=== PATIENT | female | born 1950 | race Caucasian/White ===

== ENCOUNTER 2020-02-02 19:14 | Emergency (ER) | payer MEDICARE, OTHER, SELFPAY ==
[2020-02-02 19:28] VITALS: BP 156/87; PULSE 79; RESP 16; TEMP 36.6; O2SAT 97; BMI 28.3
--- NOTE | 2020-02-02 19:45 | ED_ITS ---
HPI - Abdominal Pain General: Chief Complaint: Abdominal Pain Stated Complaint: poss uti Time Seen by Provider: 02/02/20 19:38 History of Present Illness: HPI narrative: Nadya is a nice 69-year-old female who comes in complaining of UTI. She states that she has had urinary frequency, urgency and dysuria that started today. She states that his symptoms are exactly like when she has had UTIs in the past. She says the pain came on fairly quickly and caused her nauseousness and made her vomit once but currently feels better from that. She complains of midline discomfort with the need to urinate which is better after. She is had no fevers or chills. She denies any vaginal discharge or bleeding. She has no diarrhea, constipation or other complaints. She is unaware of anything that makes her symptoms better or worse. Associated Symptoms: Reports dysuria, nausea and vomiting; Denies chills, coffee ground emesis, constipation, GI cramping, diarrhea, fever(s), hematochezia, hematuria, hematemesis, melena and syncope Review of Systems General: Reports: other (negative unless marked) Const: Denies: fever, chills, body aches, fatigue, malaise or diaphoresis Eyes: Denies: change in vision or blurry vision ENMT: Denies: throat pain, painful swallowing, hoarseness, ear pain, ear discharge, Change in hearing or nasal discharge Card: Denies: chest pain, palpitations, irregular heart rhythm, syncope, pre- syncope, shortness of breath on exertion or shortness of breath when lying down Resp: Denies: shortness of breath, productive cough, non-productive cough, wheezing, coughing up blood or chest congestion GI: Reports: nausea and vomiting; Denies: abdominal pain, vomiting blood, coffee grounds in vomit, diarrhea, constipation, cramping, blood in stool or black tarry stool : Reports: painful urination, urinary frequency and urinary urgency; Denies: flank pain, decreased urine ouput, urinary incontinence or blood in urine Musc: Denies: neck pain, back pain, extremity pain, extremity swelling, joint pain, joint swelling, joint warmth or joint stiffness Skin/Breast: Denies: rash, skin tenderness or yellow skin Neuro: Denies: headache, numbness in extremities, weakness in extremities, changes in sensation, lack of coordination, difficulty walking, dizziness, vertigo or confusion Endo: Denies: excessive thirst, tired all the time, cold intolerance, excessive sweating, flushing or hot flashes Catracho/Lymph: Denies: easy bruising, easy bleeding, petechiae or enlarged lymph nodes All/Imm: Denies: hives, throat swelling, tongue swelling, facial swelling or acute wheezing PFSH ED PFSH: Social History Smoking and tobacco status: never smoked Physical Exam Const: COMMON NORMALS: no apparent distress, oriented x3, no limitations, healthy appearing and well nourished EXAM LIMITATIONS: no altered mental stat us GENERAL APPEARANCE: cooperative, well kempt and well developed ORIENTATION/CONSCIOUSNESS: Yes awake HENMT: COMMON NORMALS: normocephalic, head/scalp atraumatic, hearing grossly normal bilaterally, external ears normal, EAC's normal, external nose normal and moist oral mucous membranes HEAD & SCALP: normal to inspection, normocephalic and atraumatic FACE & SINUS: normal facial exam and face symmetric NOSE: external nose normal and nares normal EXTERNAL EAR: Yes external ears normal EXTERNAL AUDITORY CANAL: EAC's normal MOUTH: oral and palatal mucosa normal and tongue normal Eye: COMMON NORMALS: PERRL, EOMs intact bilaterally, conjunctivae normal and no scleral icterus GENERAL EYE: normal appearance of both eyes and normal light reflex CONJUNCTIVA: Yes conjunctivae normal SCLERA: sclerae normal CORNEA: Yes corneas normal PUPIL: Yes PERRL DIRECT OPHTHALMOSCOPY: Yes normal light reflex Neck/C-Spine: COMMON NORMALS: full ROM, no lymphadenopathy, supple, no meningeal signs and no JVD GENERAL: Yes normal visual inspection and Yes trachea midline CERVICAL SPINE: Yes cervical ROM normal Chest: COMMONS NORMALS: inspection of chest normal and palpation of chest normal Resp: COMMON NORMALS: normal respiratory effort, no retractions, no use of accessory muscles and clear to auscultation bilaterally EFFORT & INSPECTION: Yes able to speak in complete sentences AUSCULTATION: clear to auscultation bilaterally Cardio: COMMON NORMALS: no JVD, regular rate, regular rhythm, S1 normal heart sound, S2 normal heart sound, no gallops, no clicks, no murmurs and no rub JUGULAR VENOUS DISTENTION: no JVD RATE: regular rate RHYTHM: regular rhythm HEART SOUNDS: S1 normal and S2 normal GI: COMMON NORMALS: soft to palpation, non-tender, no hepatosplenomegaly and no masses INSPECTION: Yes normal to inspection PALPATION: Yes soft and Yes no hepatosplenomegaly : COMMON NORMALS: Yes no CVA tenderness BLADDER/KIDNEY EXAM: Yes no CVA tenderness Back/Pelvis: COMMON NORMALS: no CVA tenderness, thoracic and lumbar spine normal to inspection, no thoracic nor lumbar tenderness and thoraco-lumbar ROM normal Extremity: COMMON NORMALS: normal to inspection, full ROM, normal capillary refill, no joint enlargement, no clubbing, cyanosis or edema and no calf tenderness Neuro: COMMON NORMALS: oriented x3, CN's II-XII intact bilaterally, moves all extremities, no focal motor deficits and no sensory deficits noted MENINGEAL SIGNS: Yes no meningeal signs Psych: COMMON NORMALS: mental status grossly normal, thought process normal, cooperative, affect normal, speech normal and activity/motor behavior normal APPEARANCE: Yes well kempt SPEECH: Yes normal speech THOUGHT PROCESS: normal thought process Skin: COMMON NORMALS: no rashes or lesions noted, skin turgor normal, no jaundice, no petechiae and no mottling GENERAL SKIN EXAM: no rashes or lesions noted and turgor normal Course Vital Signs: Vital signs: Vital Signs Temperature 97.8 F 02/02/20 19:28 Pulse Rate 70 02/02/20 21:53 Respiratory Rate 18 02/02/20 21:53 Blood Pressure 180/102 02/02/20 21:53 Pulse Oximetry 97 02/02/20 21:53 MDM - Abdominal Pain MDM Narrative: Medical decision making narrative: Ms. Diaz is a nice 69-year-old female who comes in with urinary frequency, urgency and dysuria. She denies any lower abdominal pain. She states this pain is exactly as when she is had UTIs in the past. She took an old prescription of Pyridium shortly before coming in causing the contamination of her urinalysis. She declined any IV, lab work or CAT scan to evaluate for pyelonephritis, appendicitis and otherwise. Patient states she is feeling better after the Pyridium given here and would like to be discharged home. She denies any questions or concerns but does agree to return should her symptoms change or worsen. Differential Diagnosis: Differential diagnosis abdominal pain: Likely abdominal pain, acute appendicitis, calculus of kidney, constipation, diverticulitis, endometriosis and gastroenteritis Lab Data: Attestation: I reviewed the patient's lab results. Labs: Lab Results 02/02/20 Range/Units 20:20 Urine Color [place] (Yellow) Urine Appearance Cloudy (CLEAR) Urine pH TNP Ur Specific Gravit y TNP Urine Protein Not tested (Negative) Urine Glucose (UA) Not tested (Normal) Urine Ketones Not tested H (Negative) Urine Blood Not tested A (Negative) Urine Nitrate Not tested A (Negative) Urine Bilirubin Not tested (NEGATIVE) Urine Urobilinogen Not tested A (Negative) mg/dL Ur Leukocyte Rosalee ase Not tested A (Negative) Urine RBC 5-10 H (0-2) /hpf Urine WBC 25-40 H (0-5) /hpf Ur Squamous Epith Cells 0-4 H (0-5) Urine Bacteria 3+ H (NONE) Discharge Plan Discharge Patient Disposition: Home, Self-Care Clinical Impression: Acute UTI Condition: Stable Prescriptions: New Cipro 500 mg tablet 500 mg PO BID Qty: 20 RF: 0 Pyridium 100 mg tablet 100 mg PO Q8H PRN (Reason: pain) Qty: 10 RF: 0 Zofran 4 mg tablet 4 mg PO Q6H PRN (Reason: nausea and vomiting) Qty: 20 RF: 0 No Action ofloxacin 0.3 % drops RF: 0 benazepril-hydrochlorothiazide 20-12.5 mg tablet RF: 0 Estring 2 mg (7.5 mcg /24 hour) ring VAGINAL RF: 0 quetiapine 25 mg tablet RF: 0 sertraline 100 mg tablet RF: 0 simvastatin 40 mg tablet RF: 0 Discharge Orders: Discharge Order (Routine); Ordered 02/02/20 Ordered By: Marva Ballard Referrals: Amira David [Primary Care Provider] - 1-3 days Rodolfo Ann DO [Family Provider] - Discharge Diet: Advance as tolerated Discharge Activity: Increase activity as tolerated Patient Instructions: Urinary Tract Infection in Women (ED) Activity Restrictions/Additional Instructions: Please return to the ER immediately for any of the signs or symptoms listed on your discharge instruction sheets, worsening/changing of your symptoms, you are not getting better as quickly as expected, or for ANY other cause or concerns. Discharge Date/Time: 02/02/20 21:54 Coding Level of Care Code ED Adhesive Primer for Rakesh Fwd Exam Comprehensive
[2020-02-02 20:51] VITALS: BP 132/82; PULSE 62; RESP 16; O2SAT 98
[2020-02-02 21:01] LABS: Urine Appearance Cloudy (CLEAR); Urine Color Orange (Yellow)
[2020-02-02 21:11] LABS: Add Urine Culture? Yes; Bacteria Urine 3+; Squamous Epithelial Cell Urine 0-4 (0-5); WBC Urine 25-40 /hpf (0-5)
[2020-02-02 21:13] LABS: Bilirubin Urine Not Tested (NEGATIVE); Blood Urine Not Tested (Negative); Glucose Urine UA Not Tested (Normal); Ketones Urine Not Tested (Negative); Leukocyte Esterase Urine Not Tested (Negative); Nitrate Urine Not Tested (Negative); Protein Urine Not Tested (Negative); Urobilinogen Urine Not Tested mg/dL (Negative)
[2020-02-02] MEDS: cefTRIAXone 1,000 mg SDV 1000 MG IM (21:31)
[2020-02-02] MEDS: ciprofloxacin 500 mg Tablet PO (21:32)
[2020-02-02] MEDS: phenazopyridine 100 mg Tablet 200 MG PO (21:33)
[2020-02-02] MEDS: lidocaine 1% INJ 20 mL 2.1 ML IV (21:48)
[2020-02-02 21:53] VITALS: BP 180/102; PULSE 70; RESP 18; O2SAT 97
== END 2020-02-02 21:54 | disposition home or self-care (01) ==
PROVIDERS: Emergency Provider Emergency Medicine; Family Provider Family Medicine; PCP Nurse Practitioner Family
DX: N39.0 Urinary tract infection, site not specified (principal)
CPT/HCPCS: 12345; 81001; 87077; 87086; 87186; 96372; 99281; 99283; J0696; J2001

== ENCOUNTER 2020-05-22 09:53 | Outpatient (CLI) | payer MEDICARE, OTHER, SELFPAY ==
--- NOTE | 2020-05-22 09:58 | MM_ITS ---
WS: [id number] BILATERAL SCREENING DIGITAL MAMMOGRAM WITH CAD HISTORY: SCREENING COMPARISON: 01/18/2019, 12/12/2017, 11/15/2016 and 10/28/2015 Bilateral CC and MLO views submitted. Computer aided detection analyzed. Breast composition: The breasts are extremely dense, which lowers the sensitivity of mammography. No suspicious masses, microcalcifications or architectural distortion. Area of architectural distortion in the central RIGHT breast has been stable over multiple prior examinations. There are also benign c alcifications and prior biopsy clip in the RIGHT breast. MM/[id number] IMPRESSION: BI-RADS: 2-Benign FOLLOW UP: 1 Year Follow-up
== END 2020-05-22 09:54 | disposition home or self-care (01) ==
LOC: RADSHAW 09:57
PROVIDERS: PCP Nurse Practitioner Family; Visit Provider Nurse Practitioner Family
DX: Z12.31 Encounter for screening mammogram for malignant neoplasm of breast (principal)
CPT/HCPCS: 77067

== ENCOUNTER 2021-06-11 14:50 | Outpatient (CLI) | payer MEDICARE, SELFPAY ==
--- NOTE | 2021-06-11 15:03 | MM_ITS ---
WS: [id number] BILATERAL SCREENING DIGITAL MAMMOGRAM WITH CAD HISTORY: SCREENING COMPARISON: 05/22/2020, 12/12/2017 Bilateral CC and MLO views submitted. Computer aided detection analyzed. Breast composition: The breasts are extremely dense, which lowers the sensitivity of mammography. No suspicious masses, microcalcifications or new architectural distortion. Stable appearance of the dens e fibroglandular densities and calcifications. The architectural distortion in the central RIGHT [address] is stable. MM/[id number] IMPRESSION: BI-RADS: 2-Benign FOLLOW UP: 1 Year Follow-up
== END 2021-06-11 14:51 | disposition home or self-care (01) ==
LOC: RADSHAW 15:03
PROVIDERS: PCP Nurse Practitioner Family; Visit Provider Nurse Practitioner Family
DX: Z12.31 Encounter for screening mammogram for malignant neoplasm of breast (principal)
CPT/HCPCS: 77067

== ENCOUNTER → 2021-10-24 16:03 | Outpatient (BNVA) | payer MEDICARE, SELFPAY | PROVIDERS: PCP Nurse Practitioner Family; Visit Provider Nurse Practitioner | DX: R39.9 Unspecified symptoms and signs involving the genitourinary system (principal); N39.0 Urinary tract infection, site not specified | CPT/HCPCS: 81000 ==

== ENCOUNTER 2021-11-18 17:20 | Emergency (ER) | payer MEDICARE, SELFPAY ==
[2021-11-18 18:12] VITALS: BP 161/84; PULSE 76; RESP 18; TEMP 36.7; O2SAT 97; BMI 26.8
[2021-11-18 19:08] LABS: Albumin Level 4.6 g/dL (3.5-5.2); Alkaline Phosphatase 50 IU/L (35-105); Blood Urea Nitrogen 15 mg/dL (8-23); Calcium 10.1 mg/dL (8.5-10.5); Carbon Dioxide 22 mmol/L (22-29); Chloride 98 mmol/L (98-107); Globulin 2.2 g/dL (1.3-4.6); Glucose 88 mg/dL (65-115); Lipase 47 U/L (13-60); Osmolality Calculated 280 mOsm/kg (285-295); Sodium 135 mmol/L (136-145); Total Bilirubin 0.5 mg/dL (0.15-1.2); Total Protein 6.8 g/dL (6.6-8.7)
[2021-11-18 19:18] LABS: Anion Gap 19.4 (5-19); Aspartate Amino Transferase 43 U/L (0-32); Potassium 4.4 mmol/L (3.5-5.1)
[2021-11-18 19:19] LABS: Alanine Aminotransferase 28 U/L (0-33)
[2021-11-18 19:24] LABS: Add Urine Microscopic? NO; Charge for UA Resulting for Rev
[2021-11-18] MEDS: sodium chloride 0.9% 1,000 ML 999 ML IV ×2 (19:25→20:45)
[2021-11-18 19:26] VITALS: BP 167/100; PULSE 75; RESP 17; O2SAT 99
[2021-11-18 19:28] LABS: Bilirubin Urine Neg (Negative); Blood Urine Neg (Negative); Glucose Urine UA Norm (Normal); Ketones Urine Negative (Negative); Leukocyte Esterase Urine Negative (Negative); Nitrate Urine Negative (Negative); Protein Urine Neg (Negative); Specific Gravity, Urine 1.015 (1.005-1.030); Sulfosalicylic Acid Urine Negative (Negative); Urine Appearance Clear (CLEAR); Urine Color Yellow (Yellow); Urobilinogen Urine Neg (Negative); pH Urine 8 (5-7)
[2021-11-18 19:29] LABS: Basophils % 0.4 %; Eosinophils % 0.3 %; Hematocrit 43.9 % (37.0-47.0); Hemoglobin 15.1 g/dL (11.5-15.3); Lymphocytes # 1.1 10^3/uL (0.8-4.8); Lymphocytes % 15.2 %; Mean Corpuscular HGB Conc 34.4 g/dL (30.0-36.0); Mean Corpuscular Hemoglobin 31.1 pg (28.0-34.0); Mean Corpuscular Volume 90.3 fl (81-99); Mean Platelet Volume 10.5 fL (7.4-10.4); Monocytes # 0.5 10^3/uL (0.2-0.9); Monocytes % 6.3 %; Neutrophils # 5.54 10^3/uL (1.8-7.7); Neutrophils % 77.2 %; Nucleated Red Blood Cells % 0 %; Platelet Count 168 10^3/cmm (130-400); Red Blood Count 4.86 10^6/uL (4.1-5.3); Red Cell Distribution Width 11.9 % (12.1-15.1); White Blood Count 7.2 10^3/uL (4.0-10.0)
--- NOTE | 2021-11-18 19:30 | W.ED.ABDPA2 ---
HPI - Abdominal Pain General: Chief Complaint: Abdominal Pain Stated Complaint: PCP SENT OVER FOR DEHYDRATION, NAUSEAUS Time Seen by Provider: 11/18/21 19:07 Source: patient Mode of arrival: ambulatory Limitations: no limitations History of Present Illness: 71-year-old female who states that she has been having abdominal cramping over the last 2 to 3 days with some nausea and decreased appetite. States the pain is mild nature rates it a 2-3 out of 10. States she believes she had Covid 2 weeks ago because her tested positive and she had headache body aches and still is feeling like she has a generalized malaise. States this abdominal cramping started 2 to 3 days ago she seen her PCP yesterday had normal blood work denies any dysuria denies any fever denies any cough or shortness of breath. Associated Symptoms: Denies dysuria Review of Systems Const: Reports: malaise Eyes: Denies: blurry vision or eye discomfort ENMT: Denies: throat pain or dental pain Card: Denies: chest pain Resp: Denies: dyspnea GI: Reports: abdominal pain : Denies: dysuria Musc: Denies: neck pain or back pain Skin/Breast: Denies: rash Neuro: Denies: headache(s) Psych: Denies: depression Catracho/Lymph: Denies: easy bruising All/Imm: Denies: urticaria PFSH ED PFSH: Social History Smoking and tobacco status: never smoked Physical Exam Const: COMMON NORMALS: no acute distress, patient oriented x3 and healthy appearing HENMT: COMMON NORMALS: normocephalic and atraumatic HEAD & SCALP: normocephalic and atraumatic Eye: COMMON NORMALS: Equal, round and reactive pupils present and EOMs intact bilaterally PUPIL: Yes Equal, round and reactive pupils present Neck/C-Spine: COMMON NORMALS: full ROM and supple Chest: COMMONS NORMALS: normal inspection of the chest and normal palpation of entire chest wall Resp: COMMON NORMALS: normal respiratory effort, No retractions, No use of accessory muscles and clear to auscultation bilaterally AUSCULTATION: clear to auscultation bilaterally Cardio: COMMON NORMALS: regular rate, regular rhythm and No murmurs present (Cardio) RATE: regular rate RHYTHM: regular rhythm GI: COMMON NORMALS: Normal to inspection, nondistended, normoactive bowel sounds present, Soft to palpation, non-tender and no masses PALPATION: Yes Soft to palpation Extremity: COMMON NORMALS: normal to inspection and full ROM Neuro: COMMON NORMALS: patient oriented x3, moves all extremities and no focal motor deficits Psych: COMMON NORMALS: mental status grossly normal, Normal thought process present and cooperative THOUGHT PROCESS: Normal thought process present Skin: COMMON NORMALS: no rashes or lesions noted and no wounds GENERAL SKIN EXAM: no rashes or lesions noted Course Vital Signs: Vital signs: Vital Signs Temperature 98.1 F 11/18/21 18:12 Pulse Rate 70 11/18/21 20:20 Respiratory Rate 17 11/18/21 19:26 Blood Pressure 179/88 11/18/21 20:20 Pulse Oximetry 100 11/18/21 20:20 MDM - Abdominal Pain Medical Decision Making Patient presents here with abdominal cramping I believe is likely post Covid but she did likely recently have Covid. Abdominal exam and repeat abdominal exam here is benign with no tenderness. White count here is normal. She is stable for discharge she is to take Zofran follow-up with PCP and return if she has worsening symptoms she understands agrees to plan Medical Records Patient presents here with abdominal cramping I believe is likely post Covid but she did likely recently have Covid. Abdominal exam and repeat abdominal exam here is benign with no tenderness. White count here is normal. She is stable for discharge she is to take Zofran follow-up with PCP and return if she has worsening symptoms she understands agrees to plan. Lab Data : 11/18/21 19:20 11/18/21 18:32 Labs/Radiology: Laboratory Results WBC 7.2 10^3/uL (4.0-10.0) 11/18/21 19:20 Corrected WBC Cancelled 11/18/21 18:32 RBC 4.86 10^6/uL (4.1-5.3) 11/18/21 19:20 Hgb 15.1 g/dL (11.5-15.3) 11/18/21 19:20 Hct 43.9 % (37.0-47.0) 11/18/21 19:20 MCV 90.3 fl (81-99) 11/18/21 19:20 MCH 31.1 pg (28.0-34.0) 11/18/21 19:20 MCHC 34.4 g/dL (30.0-36.0) 11/18/21 19:20 RDW 11.9 % (12.1-15.1) L 11/18/21 19:20 Plt Count 168 10^3/cmm (130-400) 11/18/21 19:20 MPV 10.5 fL (7.4-10.4) H 11/18/21 19:20 Gran % Cancelled 11/18/21 18:32 Neut % (Auto) 77.2 % 11/18/21 19:20 Lymph % (Auto) 15.2 % 11/18/21 19:20 [place] % (Auto) 6.3 % 11/18/21 19:20 Eos % (Auto) 0.3 % 11/18/21 19:20 Baso % (Auto) 0.4 % 11/18/21 19:20 Neut # (Auto) 5.54 10^3/uL (1.8-7.7) 11/18/21 19:20 Lymph # (Auto) 1.1 10^3/uL (0.8-4.8) 11/18/21 19:20 [place] # (Auto) 0.5 10^3/uL (0.2-0.9) 11/18/21 19:20 Eos # (Auto) 0.0 10^3/uL (0.0-0.8) 11/18/21 19:20 Baso # (Auto) 0.0 10^3/uL (0.0-0.1) 11/18/21 19:20 Absolute Gran (auto) Cancelled 11/18/21 18:32 Nucleated RBC % (auto) 0 % 11/18/21 19:20 Nucleated RBCs # 0.0 /100WBC 11/18/21 19:20 Sodium 135 mmol/L (136-145) L 11/18/21 18:32 Potassium 4.4 mmol/L (3.5-5.1) 11/18/21 18:32 Chloride 98 mmol/L (98-107) 11/18/21 18:32 Carbon Dioxide 22 mmol/L (22-29) 11/18/21 18:32 Anion Gap 19.4 (5-19) H 11/18/21 18:32 BUN 15 mg/dL (8-23) 11/18/21 18:32 Creatinine 0.5 mg/dL (0.5-0.9) 11/18/21 18:32 GFR Calculation Not Reportable 11/18/21 18:32 Glucose 88 mg/dL (65-115) 11/18/21 18:32 Calculated Osmolality 280 mOsm/kg (285-295) L 11/18/21 18:32 Calcium 10.1 mg/dL (8.5-10.5) 11/18/21 18:32 Total Bilirubin 0.5 mg/dL (0.15-1.2) 11/18/21 18:32 AST 43 U/L (0-32) H 11/18/21 18:32 ALT 28 U/L (0-33) 11/18/21 18:32 Alkaline Phosphatase 50 IU/L (35-105) 11/18/21 18:32 Total Protein 6.8 g/dL (6.6-8.7) 11/18/21 18:32 Albumin 4.6 g/dL (3.5-5.2) 11/18/21 18:32 Globulin 2.2 g/dL (1.3-4.6) 11/18/21 18: Lipase 47 U/L (13-60) 11/18/21 18:32 Urine Color Yellow (Yellow) 11/18/21 18:35 Urine Appearance Clear (CLEAR) 11/18/21 18:35 Urine pH 8 (5-7) H 11/18/21 18:35 Ur Specific [place] 1.015 (1.005-1.030) 11/18/21 18:35 Urine Protein Neg (Negative) 11/18/21 18:35 Urine Glucose (UA) Norm (Normal) 11/18/21 18:35 Urine Ketones Negative (Negative) 11/18/21 18:35 Urine Blood Neg (Negative) 11/18/21 18:35 Urine Nitrate Negative (Negative) 11/18/21 18:35 Urine Bilirubin Neg (Negative) 11/18/21 18:35 Prot Sulfosalicylic Acd Negative (Negative) 11/18/21 18:35 Urine Urobilinogen Neg mg/dL (Negative) 11/18/21 18:35 Ur Leukocyte Esterase Negative (Negative) 11/18/21 18:35 Discharge Plan Discharge Patient Disposition: Home Clinical Impression: Abdominal pain, Acute viral syndrome Condition: Stable Prescriptions: No Action loratadine [Allergy Relief (loratadine)] 10 mg tablet 10 mg PO DAILY 0RF montelukast [Singulair] 10 mg tablet 10 mg PO DAILY 0RF Estring 2 mg (7.5 mcg /24 hour) ring 1 vag ring vaginal Q90D 0RF aspirin 81 mg capsule 81 mg PO DAILY 0RF fluconazole [Diflucan] 150 mg tablet 150 mg PO DAILY 1 Days Qty: 1 0RF nitrofurantoin monohyd/m-cryst [Macrobid] 100 mg capsule 100 mg PO Q12H 7 Days Qty: 14 0RF Rx Instructions: must administer with a meal/food ofloxacin 0.3 % drops 0RF benazepril-hydrochlorothiazide 20-12.5 mg tablet 0RF Estring 2 mg (7.5 mcg /24 hour) ring VAGINAL 0RF quetiapine 25 mg tablet 0RF sertraline 100 mg tablet 0RF simvastatin 40 mg tablet 0RF Pyridium 100 mg tablet 100 mg PO Q8H PRN (Reason: pain) Qty: 10 0RF Zofran 4 mg tablet 4 mg PO Q6H PRN (Reason: nausea and vomiting) Qty: 20 0RF Discharge Orders: Discharge ED (Routine); Ordered 11/18/21 Ordered By: Daquan Jacobs Referrals: Amira David FNP [Primary Care Provider] - 1-3 days Discharge Diet: Advance as tolerated Discharge Activity: Resume usual activity Coding Level of Care Code ED Oil Furnace Installer for g Fwd Exam Comprehensive
[2021-11-18 20:16] VITALS: BP 179/88; PULSE 68; O2SAT 100
[2021-11-18] MEDS: dicyclomine 10 mg Capsule 20 MG PO (20:18)
[2021-11-18 20:20] VITALS: BP 179/88; PULSE 70; O2SAT 100
[2021-11-18 21:38] VITALS: BP 156/92; PULSE 16; RESP 81; O2SAT 96
== END 2021-11-18 21:41 | disposition home or self-care (01) ==
PROVIDERS: Nurse Practitioner Family; Emergency Provider Emergency Medicine; PCP Nurse Practitioner Family
DX: R10.9 Unspecified abdominal pain (principal); B34.9 Viral infection, unspecified; Z79.82 Long term (current) use of aspirin
CPT/HCPCS: 80053; 81003; 83690; 85025; 96360; 96361; 99284; J7030

== ENCOUNTER → 2021-11-22 10:18 | Outpatient (BNVA) | payer MEDICARE, SELFPAY | PROVIDERS: PCP Nurse Practitioner Family; Visit Provider Nurse Practitioner | DX: N39.0 Urinary tract infection, site not specified (principal) | CPT/HCPCS: 81000 ==

== ENCOUNTER 2022-07-14 11:29 | Outpatient (CLI) | payer MEDICARE, SELFPAY ==
--- NOTE | 2022-07-14 11:39 | MM_ITS ---
WS: [id number] Bilateral screening 3D tomosynthesis digital mammogram, 07/14/2022 Clinical Data: SCREENING Comparison: 06/11/2021, 05/22/2020, 01/18/2019, 12/12/2017, 11/15/2016, 05/18/2016, 10/28/2015, 09/30/2015, , 08/04/2015, 06/19/2014, 08/13/2013. Findings: The breast parenchymal pattern shows heterogeneous density. There are lymph nodes in both axilla. No spiculated masses or clustered calcifications are seen. There are no secondary signs of carcinoma. MM/[place] [id number] Impression: 1. Negative bilateral mammogram unchanged. 2. Recommend annual screening mammograms. BIRADS: 1-Negative FOLLOW UP: 1 Year Follow-up The CAD chemical checker was used.
== END 2022-07-14 11:30 | disposition home or self-care (01) ==
LOC: RAD 11:30
PROVIDERS: PCP Nurse Practitioner Family; Visit Provider Nurse Practitioner Family
DX: Z12.31 Encounter for screening mammogram for malignant neoplasm of breast (principal)
CPT/HCPCS: 77063; 77067

== ENCOUNTER 2022-08-11 14:20 | Outpatient (CLI) | payer MEDICARE, SELFPAY ==
--- NOTE | 2022-08-11 14:32 | XR_ITS ---
WS: [id number] DEXA (DUAL ENERGY X-RAY ABSORPTIOMETRY) Bone mineral density was performed using a [facility] machine. HISTORY: POSTMENOPAUSAL COMPARISON: None available. Lumbar spine BMD (L1-L4): 1.617 g/cm2 T score: 3.6 Z score: 5.4 Total hip BMD: Left: 1.062 g/cm2. T score: 0.4 Z score: 2.1 Right: 1.035 g/cm2. T score: 0.2 Z score: 1.9 10 year probability of a major osteoporotic fracture is 12.9%. Sclerosis in the L2 and L3 vertebral bodies causing mild elevation of bone mineral density. Mild curv ature lumbar spine. XR/XR DEXA axial skeleton* [id number] IMPRESSION: NORMAL BONE MINERAL DENSITY based upon the WHO classification for females.
== END 2022-08-11 14:21 | disposition home or self-care (01) ==
LOC: RAD 14:21
PROVIDERS: PCP Nurse Practitioner Family; Visit Provider Nurse Practitioner Family
DX: Z78.0 Asymptomatic menopausal state (principal)
CPT/HCPCS: 77080

== ENCOUNTER 2022-09-27 08:12 | Outpatient (CLI) | payer MEDICARE, SELFPAY ==
--- NOTE | 2022-09-27 08:35 | CT_ITS ---
WS: [id number] CT NECK TECHNIQUE: Contrast-enhanced CT of the neck with coronal and sagittal reformatted images. CLINICAL INFORMATION: DYSPHAGIA COMPARISON: None. DLP: 216.[address] scans at [facility] use at least one of these dose optimization techniques: automated e xposure control; mA and/or kV adjustment per patient size (includes targeted exams where dose is matc hed to clinical indication); or iterative reconstruction. FINDINGS: Partially visualized paranasal sinuses and mastoid air cells well aerated. Normal posterior nasophary nx. Normal parapharyngeal fat. Normal submandibular glands. Thyroid glands are normal. No cervical lymphadenopathy. Calcified RIGHT thyroid nodule measuring 6 mm . Normal posterior nasopharynx. No evidence of supraglottic or glottic mass. Normal vallecula and pir iform sinuses. Normal subglottic airway. Mild spondylitic changes cervical spine. Straightening of no rmal cervical lordosis. Slight anterolisthesis C4 on C5. CT/CT neck w con* [id number] IMPRESSION: 1. Normal salivary glands. 2. No evidence of supraglottic or glottic mass. 3. Normal posterior nasopharynx. 4. No cervical lymphadenopathy. 5. No other acute findings.
[2022-09-27 09:05] LABS: Blood Urea Nitrogen 16 mg/dL (8-23)
[2022-09-27] MEDS: iohexol 350 mg/mL 100 mL Btl IV (09:16)
== END 2022-09-27 08:13 | disposition home or self-care (01) ==
PROVIDERS: PCP Nurse Practitioner Family; Visit Provider Specialist
DX: R13.10 Dysphagia, unspecified (principal)
CPT/HCPCS: 70491; 82565; 84520; Q9967

== ENCOUNTER 2022-10-04 10:01 | Outpatient (CLI) | payer MEDICARE, SELFPAY ==
--- NOTE | 2022-10-04 | FL_ITS ---
WS: [id number] Barium swallow and esophagram, air-contrast, 10/04/2022 Clinical Data: DYSPHAGIA Comparison: None. Fluoroscopy time: 1min [id number] # of spot films: 7 Findings: The patient swallowed the thick and thin barium, and it flowed through the hypopharynx without hesita tion. No stricture, mass, polyp or erosion was seen. There is no aspiration or penetration. There is anterior osteoarthritic spurring at C5 and C6 which impinges slightly on of the posterior hypopharynx . The barium entered the esophagus and there was normal motility throughout. No hiatal hernia, reflux, stricture, polyp, mass, erosion or ulcer was noted. FL/FL barium swallow 2cont [id number] Impression: 1. 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 2. Negative esophagram.
--- NOTE | 2022-10-04 10:14 | FL_ITS ---
WS: [id number] Barium swallow and esophagram, air-contrast, 10/04/2022 Clinical Data: DYSPHAGIA Comparison: None. Fluoroscopy time: 1min [id number] # of spot films: 7 Findings: The patient swallowed the thick and thin barium, and it flowed through the hypopharynx without hesita tion. No stricture, mass, polyp or erosion was seen. There is no aspiration or penetration. There is anterior osteoarthritic spurring at C5 and C6 which impinges slightly on of the posterior hypopharynx . The barium entered the esophagus and there was normal motility throughout. No hiatal hernia, reflux, stricture, polyp, mass, erosion or ulcer was noted.
== END 2022-10-04 10:02 | disposition home or self-care (01) ==
PROVIDERS: PCP Nurse Practitioner Family; Visit Provider Specialist
DX: R13.10 Dysphagia, unspecified (principal)
CPT/HCPCS: 74220; 74221

== ENCOUNTER 2022-10-11 08:13 | Outpatient (CLI) | payer MEDICARE, SELFPAY ==
--- NOTE | 2022-10-11 08:21 | FL_ITS ---
WS: [id number] Exam: FL barium swallow modifd [id number] Date/Time of Exam: 10/11/2022 8:30 AM Reason For Exam: Other dysphagia Fluoroscopy time: 2min [id number] minutes # of spot films: 1 Modified barium swallow was performed in conjunction with the speech therapy service. The patient tolerated thin liquid, nectar consistency, pudding consistency and solid barium mixture f oodstuffs without aspiration or penetration. Swallowing function at the level of oropharynx was clinton l. The patient ingested the barium tablet which passed into the stomach without difficulty. FL/FL barium swallow modifd [id number] IMPRESSION: 1. Unremarkable modified barium swallow. No sign of aspiration or penetration. A separate report of recommendations and findings will follow from the speech t herapy service.
== END 2022-10-11 08:14 | disposition home or self-care (01) ==
LOC: RAD 08:14
PROVIDERS: PCP Nurse Practitioner Family; Visit Provider Specialist
DX: R13.10 Dysphagia, unspecified (principal)
CPT/HCPCS: 74230; 92611

== ENCOUNTER 2023-08-09 08:17 | Outpatient (CLI) | payer MEDICARE, SELFPAY ==
--- NOTE | 2023-08-09 08:24 | MM_ITS ---
WS: [id number] BILATERAL 3D TOMOSYNTHESIS DIGITAL SCREENING MAMMOGRAM WITH CAD CLINICAL INFORMATION: SCREENING HISTORY: Screening mammogram. No current complaints. COMPARISON: 2021 TECHNIQUE: Bilateral CC and MLO. FINDINGS: The breast are composed of extremely dense tissue, which can limit the detection of small underlying mass lesions. No suspicious focal mass, asymmetry, calcifications, or architectural distortion. No ev idence of malignancy. Punctate and lucent centered calcifications. Biopsy marker RIGHT breast. IMPRESSION: MM/[place] [id number] BI-RADS: 2-Benign FOLLOW UP: 1 Year Follow-up Recommend return to annual screening mammography.
== END 2023-08-09 08:18 | disposition home or self-care (01) ==
LOC: RAD 08:18
PROVIDERS: PCP Nurse Practitioner Family; Visit Provider Nurse Practitioner Family
DX: Z12.31 Encounter for screening mammogram for malignant neoplasm of breast (principal)
CPT/HCPCS: 77063; 77067

== ENCOUNTER 2024-04-04 16:23 | Outpatient (CLI) | payer MEDICARE, SELFPAY ==
--- NOTE | 2024-04-04 16:29 | CT_ITS ---
WS: [id number] CT NECK TECHNIQUE: Contrast-enhanced CT of the neck with coronal and sagittal reformatted images. CLINICAL INFORMATION: NECK SWELLING COMPARISON: CT 2021. Ultrasound 03/20/2024 DLP: 256.[address] scans at [facility] use at least one of these dose optimization techniques: automated e xposure control; mA and/or kV adjustment per patient size (includes targeted exams where dose is matc hed to clinical indication); or iterative reconstruction. FINDINGS: Recent ultrasound reviewed. Heterogeneously enhancing nodule in the inferior tail of the RIGHT paroti d gland just anterior to the sternocleidomastoid. Associated internal heterogeneous low attenuation s uspicious for necrosis. This may present a parotid neoplasm versus malignant lymph node. Recommend EN T consultation. Decreased internal echogenicity on the prior ultrasound also suggestive of internal c ystic change or necrosis. Benign and malignant parotid neoplasms can have this appearance. Parotid glands are otherwise normal. LEFT submandibular gland is normal. No lymphadenopathy. Tongue b ase appears normal. Some images degraded by dental artifact. Normal parapharyngeal fat. Normal bushwalking guide ior nasopharynx. No evidence of supraglottic or glottic mass. Normal subglottic airway. Small calcifi ed RIGHT thyroid nodule. A few additional tiny subcentimeter thyroid nodules bilaterally. Lung apices are well aerated. Mild spondylitic changes cervical spine. CT/CT neck w con* [id number] IMPRESSION: 1. Solid enhancing nodule inferior tail of the RIGHT parotid gland measuring a pproximately 1.2 x 1.1 cm. Findings suspicious for parotid neoplasm or necrotic lymph node. Heterogeneous internal enhancement. Recommend ENT consultation. Pa rotid adenomas and malignant parotid nodules can have this appearance. 2. LEFT submandibular gland is normal. 3. Parotid glands are normal. 4. No cervical lymphadenopathy. 5. A few small thyroid nodules described above this can be followed up with ultrasound 6. No other suspicious findings.
[2024-04-04 17:35] LABS: Blood Urea Nitrogen 14 mg/dL (8-23)
[2024-04-04] MEDS: iohexol 350 mg/mL 500 mL Btl (per mL) IV (17:43)
== END 2024-04-04 16:24 | disposition home or self-care (01) ==
LOC: RAD 16:23
PROVIDERS: PCP Nurse Practitioner Family; Visit Provider Nurse Practitioner Family
DX: D11.0 Benign neoplasm of parotid gland (principal); E04.2 Nontoxic multinodular goiter
CPT/HCPCS: 70491; 82565; 84520; Q9967

== ENCOUNTER 2024-06-18 16:08 | Emergency (ER) | payer MEDICARE, SELFPAY ==
[2024-06-18 16:16] VITALS: BP 162/74; PULSE 70; RESP 16; TEMP 36.6; O2SAT 97
--- NOTE | 2024-06-18 16:32 | XRR_ITS ---
PROCEDURE INFORMATION: Exam: XR Abdomen Exam date and time: 06/18/2024 4:47 PM Age: 74 years old Clinical indication: Constipation TECHNIQUE: Imaging protocol: Radiologic exam of the abdomen. Views: 2 Views. Upright and supine views. COMPARISON: CR XR chest 1V [id number] 11/25/2018 9:43 PM FINDINGS: Lungs: Visualized lungs are clear. Heart/Mediastinum: Stable mild enlargement of the cardiac silhouette. Gastrointestinal tract: Increased fecal content in the colon. Nonobstructive bowel gas pattern. Intraperitoneal space: No free intraperitoneal air. Organs: No organomegaly. Vasculature: Multiple calcifications in the pelvis most likely representing calcified phleboliths. Bones/joints: Degenerative changes in the spine, sacroiliac joints, and hips. Mild scoliosis in the visualized spine. XR/XR abdomen min 2V [id number] IMPRESSION: 1. Nonobstructed bowel gas pattern. 2. Increased fecal content in the colon. 3. Incidental/nonacute findings are listed in the report.
[2024-06-18 16:56] LABS: Basophils # 0.1 10^3/uL (0.0-0.1); Basophils % 0.6 %; Eosinophils # 0.1 10^3/uL (0.0-0.8); Eosinophils % 1.1 %; Hematocrit 42.4 % (36-47); Lymphocytes # 1.2 10^3/uL (0.8-4.8); Lymphocytes % 14.5 %; Mean Corpuscular HGB Conc 34.2 g/dL (30-55); Mean Corpuscular Hemoglobin 31.5 pg (27-33); Mean Platelet Volume 10.8 fL (7.4-10.4); Monocytes # 0.5 10^3/uL (0.2-0.9); Monocytes % 6.3 %; Neutrophils # 6.48 10^3/uL (1.8-7.7); Neutrophils % 77.1 %; Nucleated Red Blood Cells % 0 %; Platelet Count 212 10^3/cmm (157-399); Red Blood Count 4.61 10^6/uL (3.85-5.65); Red Cell Distribution Width 11.7 % (12.1-15.1)
[2024-06-18 17:12] LABS: Alanine Aminotransferase 23 U/L (0-33); Albumin Level 4.6 g/dL (3.5-5.2); Alkaline Phosphatase 58 U/L (35-105); Anion Gap 14.7 (5-19); Aspartate Amino Transferase 26 U/L (0-32); Blood Urea Nitrogen 14 mg/dL (8-23); Calcium 9.6 mg/dL (8.5-10.5); Carbon Dioxide 28 mmol/L (22-29); Chloride 93 mmol/L (98-107); Creatinine Clr Calc Pharmacy 51.8748; Globulin 2.3 g/dL (1.3-4.6); Glucose 118 mg/dL (65-115); Lipase 37 U/L (13-60); Osmolality Calculated 276 mOsm/kg (285-295); Potassium 3.7 mmol/L (3.5-5.1); Sodium 132 mmol/L (136-145); Total Bilirubin 0.5 mg/dL (0.15-1.2); Total Protein 6.9 g/dL (6.6-8.7)
[2024-06-18 17:14] LABS: Slide Review Slide Review Perform
--- NOTE | 2024-06-18 17:26 | ED_ITS ---
Documented by User: [email or web address] Berg 06/18/24 18:33 HPI - Abdominal Pain 2 General: Chief Complaint: Abdominal Pain Stated Complaint: BM issues Time Seen by Provider: 06/18/24 17:01 Source: patient Mode of arrival: ambulatory Limitations: no limitations History of Present Illness: Patient is a 74-year-old female presenting to the emergency department complaining of constipation for the past week. She states she has had multiple medication changes recently, specifically a week ago she was switched back on the sertraline after being off of it for some period of time. She also notes an increase of her benazepril from 12.5 mg to 25 mg. Patient is reporting onset of nausea with her constipation, as well as increasing lower abdominal pain. She has taken MiraLAX at home as well as done 2 enemas, reports no relief. She has still retained the ability to pass gas. She denies any blood in her stool, vomiting, chest pain, shortness of breath, or other symptoms at this time. MD elicited complaint: abdominal pain Onset (ago): week(s) (1) Pain Consistency: constant Location: RLQ and LLQ Severity: moderate Quality: cramping Radiation: none Context: other (Recent medication changes) Associated Symptoms: Reports constipation and nausea; Denies bloating, change in stool character, chills, diarrhea, dysuria, fever(s), hematochezia and vomiting Treatments prior to arrival: other (MiraLAX/enemas) Related Data Home Medications Medication Instructions Recorded Confirmed benazepril 20 tab 02/02/20 11/22/21 mg-hydrochlorothiazide 12.5 mg tablet estradiol 2 mg (7.5 mcg/24 hour) vaginal 02/02/20 11/22/21 vaginal ring (Estring) ofloxacin 0.3 % eye drops 02/02/20 11/22/21 quetiapine 25 mg tablet 02/02/20 11/22/21 sertraline 100 mg tablet mg 02/02/20 11/22/21 simvastatin 40 mg tablet mg 02/02/20 11/22/21 aspirin 81 mg capsule 81 mg PO DAILY 10/24/21 11/22/21 estradiol 2 mg (7.5 mcg/24 hour) 1 vag ring vaginal Q90D 10/24/21 11/22/21 vaginal ring (Estring) loratadine 10 mg tablet (Allergy 10 mg PO DAILY 10/24/21 11/22/21 Relief (loratadine)) montelukast 10 mg tablet 10 mg PO DAILY 10/24/21 11/22/21 (Singulair) Previous Rx's Medication Instructions Recorded ondansetron HCl 4 mg tablet 4 mg PO Q6H PRN nausea and 02/02/20 (Zofran) vomiting #20 tabs ciprofloxacin HCl 500 mg tablet 500 mg PO Q12H 7 days #14 tabs 11/22/21 (Cipro) fluconazole 150 mg tablet 150 mg PO DAILY 1 day #1 tab 11/22/21 (Diflucan) ondansetron HCl 4 mg tablet 4 mg PO Q8H #30 tabs 06/18/24 Allergies Allergy/AdvReac Type Severity Reaction Status Date / Time No Known Drug Allergies Allergy Unknown Verified 06/18/24 16:21 Review of Systems 2 General: Reports: 10 or more systems reviewed and unremarkable except in HPI and below Const: Denies: fever(s), chills, change in appetite, change in weight or diaphoresis ENMT: Denies: throat pain or hoarseness Card: Denies: chest pain, palpitations or lightheadedness Resp: Denies: dyspnea, productive cough or wheezing GI: Reports: abdominal pain, nausea and constipation; Denies: vomiting, diarrhea, bloating, change in stool character or hematochezia : Denies: flank pain, difficulty voiding, dysuria, urinary frequency or urinary urgency Musc: Denies: neck pain or back pain Skin/Breast: Denies: rash or new lesions Neuro: Denies: headache(s) or dizziness PFSH ED 2 PFSH: Social History Smoking and tobacco/nicotine status: never used tobacco/nicotine Physical Exam 2 Const: COMMON NORMALS: no acute distress, average body habitus, patient oriented x3, no limitations, healthy appearing, alert and well nourished G ENERAL APPEARANCE: cooperative and comfortable ORIENTATION/CONSCIOUSNESS: Yes awake HENMT: COMMON NORMALS: normocephalic, atraumatic, hearing grossly normal bilaterally, external ears normal, Normal external nose present, Normal nasal mucous membranes and turbinates present and moist oral mucous membranes HEAD & SCALP: normocephalic and atraumatic NOSE: Normal external nose present and Normal nasal mucous membranes and turbinates present EXTERNAL EAR: Yes external ears normal Eye: COMMON NORMALS: Equal, round and reactive pupils present, EOMs intact bilaterally, conjunctivae normal and normal visual hoffman by confrontation C ONJUNCTIVA: Yes conjunctivae normal PUPIL: Yes Equal, round and reactive pupils present Neck/C-Spine: COMMON NORMALS: full ROM, supple, no meningeal signs and no JVD Resp: COMMON NORMALS: normal respiratory effort, No retractions, No use of accessory muscles and clear to auscultation bilaterally AUSCULTATION: clear to auscultation bilaterally, no crackles, no rales, no rhonchi and no wheezes Cardio: COMMON NORMALS: no JVD, regular rate, regular rhythm, S1 normal heart sound present, S2 normal heart sound present, No gallops present (Cardio), No clicks present (Cardio), No murmurs present (Cardio), No rub (Cardio) and Peripheral pulses 2+ throughout RATE: regular rate RHYTHM: regular rhythm HEART SOUNDS: S1 normal heart sound present and S2 normal heart sound present PERIPHERAL PULSES: Peripheral pulses 2+ throughout GI: COMMON NORMALS: Soft to palpation, No hepatosplenomegaly present and no masses INSPECTION: Yes normal to inspection AUSCULTATION: Yes Hyperactive bowel sounds present PALPATION: Yes Soft to palpation, Yes Tenderness to palpation present (GI) (Very mild TTP) Details: LLQ and RLQ, No Guarding due to palpation present (GI), No Rigid due to palpation and Yes No hepatosplenomegaly present RECTAL EXAM: deferred : COMMON NORMALS: Yes no CVA tenderness BLADDER/KIDNEY EXAM: Yes no CVA tenderness Back/Pelvis: COMMON NORMALS: no CVA tenderness Extremity: COMMON NORMALS: normal to inspection and full ROM Neuro: COMMON NORMALS: patient oriented x3, moves all extremities, no focal motor deficits and no sensory deficits noted SENSORIUM/ORIENTATION: Yes alert MENINGEAL SIGNS: Yes no meningeal signs Psych: COMMON NORMALS: mental status grossly normal, cooperative and speech normal SPEECH: Yes normal speech Skin: COMMON NORMALS: no rashes or lesions noted GENERAL SKIN EXAM: no rashes or lesions noted Course 2 Vital Signs: Vital signs: Vital Signs Temperature 97.9 F 06/18/24 16:16 Pulse Rate 76 08/26/24 19:39 Respiratory Rate 16 06/18/24 16:16 Blood Pressure 179/84 06/18/24 19:39 Pulse Oximetry 98 06/18/24 19:39 Oxygen Delivery Me thod Room Air 06/18/24 16:16 MDM - Abdominal Pain Medical Decision Making Patient presents for a week of constipation as well as abdominal pain and nausea. Has had multiple medication changes recently, important to note that 1 of these medications was starting sertraline after being off of it for some time. Since starting this she has not had a normal bowel movement, and does note increasing anxiety that she thinks is making this worse. She is having associated pain, however has no concerning symptoms to report such as blood in her stool or inability to pass gas. Her labs show evidence of may be a mild dehydration, which I think are contributive to constipation. X-ray obtained did not show any obstructive pattern, however there is large fecal content that I think would benefit from mixture of mineral oil/mag citrate/lactulose. Patient is also given fluids and nausea medication here, and is instructed to take these medications at home. Also encouraged to increase her fluid intake and fiber intake. She is informed to follow-up with her primary care later this week for reevaluation, and to continue taking her medications as prescribed. Return precautions were given. Lab Data 06/18/24 16:45 06/18/24 16:45 Labs/Radiology: Radiology Impressions Abdomen X-Ray 06/18/24 16:32 IMPRESSION: 1. Nonobstructed bowel gas pattern. 2. Increased fecal content in the colon. 3. Incidental/nonacute findings are listed in the report. Laboratory Results WBC 8.40 10^3/uL (3.29-11.43) 06/18/24 16:45 RBC 4.61 10^6/uL (3.85-5.65) 06/18/24 16:45 Hgb 14.50 g/dL (11.27-16.99) 06/18/24 16:45 Hct 42.4 % (36-47) 06/18/24 16:45 MCV 92.0 fl (85-98) 06/18/24 16:45 MCH 31.5 pg (27-33) 06/18/24 16:45 MCHC 34.2 g/dL (30-55) 06/18/24 16:45 RDW 11.7 % (12.1-15.1) L 06/18/24 16:45 Plt Count 212 10^3/cmm (157-399) 06/18/24 16:45 MPV 10.8 fL (7.4-10.4) H 06/18/24 16:45 Neut % (Auto) 77.1 % 06/18/24 16:45 Lymph % (Auto) 14.5 % 06/18/24 16:45 [place] % (Auto) 6.3 % 06/18/24 16:45 Eos % (Auto) 1.1 % 06/18/24 16:45 Baso % (Auto) 0.6 % 06/18/24 16:45 Neut # (Auto) 6.48 10^3/uL (1.8-7.7) 06/18/24 16:45 Lymph # (Auto) 1.2 10^3/uL (0.8-4.8) 06/18/24 16:45 [place] # (Auto) 0.5 10^3/uL (0.2-0.9) 06/18/24 16:45 Eos # (Auto) 0.1 10^3/uL (0.0-0.8) 06/18/24 16:45 Baso # (Auto) 0.1 10^3/uL (0.0-0.1) 06/18/24 16:45 Nucleated RBC % (auto) 0 % 06/18/24 16:45 Nucleated RBCs # 0.0 /100WBC 06/18/24 16:45 Sodium 132 mmol/L (136-145) L 06/18/24 16:45 Potassium 3.7 mmol/L (3.5-5.1) 06/18/24 16:45 Chloride 93 mmol/L (98-107) L 06/18/24 16:45 Carbon Dioxide 28 mmol/L (22-29) 06/18/24 16:45 Anion Gap 14.7 (5-19) 06/18/24 16:45 BUN 14 mg/dL (8-23) 06/18/24 16:45 Creatinine 0.7 mg/dL (0.5-0.9) 06/18/24 16:45 GFR Calculation Not Reportable 06/18/24 16:45 Glucose 118 mg/dL (65-115) H 06/18/24 16:45 Calculated Osmolality 276 mOsm/kg (285-295) L 06/18/24 16:45 Calcium 9.6 mg/dL (8.5-10.5) 06/18/24 16:45 Total Bilirubin 0.5 mg/dL (0.15-1.2) 06/18/24 16:45 AST 26 U/L (0-32) 06/18/24 16:45 ALT 23 U/L (0-33) 06/18/24 16:45 Alkaline Phosphatase 58 U/L (35-105) 06/18/24 16:45 Total Protein 6.9 g/dL (6.6-8.7) 06/18/24 16:45 Albumin 4.6 g/dL (3.5-5.2) 06/18/24 16:45 Globulin 2.3 g/dL (1.3-4.6) 06/18/24 16:45 Lipase 37 U/L (13-60) 06/18/24 16:45 Urine Color Yellow (Yellow) 06/18/24 17:12 Urine Appearance Cloudy (CLEAR) A 06/18/24 17:12 Urine pH 7.5 (5-7) 06/18/24 17:12 Ur Specific [place] 1.015 (1.005-1.030) 06/18/24 17:12 Urine Protein Negative (Negative) 06/18/24 17:12 Urine Glucose (UA) Negative (Normal) 06/18/24 17:12 Urine Ketones Trace (Negative) 06/18/24 17:12 Urine Blood Negative (Negative) 06/18/24 17:12 Urine Nitrate Negative (Negative) 06/18/24 17:12 Urine Bilirubin Negative (Negative) 06/18/24 17:12 Urine Urobilinogen 1.0 mg/dL (Negative) 06/18/24 17:12 Ur Leukocyte Esterase Trace (Negative) A 06/18/24 17:12 Urine RBC 0-2 /hpf (0-2) 06/18/24 17:12 Urine WBC 0-5 /hpf (0-5) 06/18/24 17:12 Ur Squamous Epith Cells 0-5 /hpf (0-5) 06/18/24 17:12 Amorphous Sediment Not Reportable 06/18/24 17:12 Urine Bacteria None seen /hpf (NONE) 06/18/24 17:12 Hyaline Casts 0.40 /lpf 06/18/24 17:12 All radiology interpretation(s) finalized by discharge Discharge Plan Discharge Patient Disposition: Home Clinical Impression: Constipation Qualifiers: Constipation type: unspecified constipation type Qualified Code(s): K59.00 - Constipation, unspecified Condition: Stable Prescriptions: New ondansetron HCl 4 mg tablet 4 mg PO Q8H Qty: 30 0RF No Action loratadine [Allergy Relief (loratadine)] 10 mg tablet 10 mg PO DAILY montelukast [Singulair] 10 mg tablet 10 mg PO DAILY Estring 2 mg (7.5 mcg /24 hour) ring 1 vag ring vaginal Q90D aspirin 81 mg capsule 81 mg PO DAILY ciprofloxacin HCl [Cipro] 500 mg tablet 500 mg PO Q12H 7 Days Qty: 14 0RF fluconazole [Diflucan] 150 mg tablet 150 mg PO DAILY 1 Days Qty: 1 0RF ofloxacin 0.3 % drops benazepril-hydrochlorothiazide 20-12.5 mg tablet Estring 2 mg (7.5 mcg /24 hour) ring VAGINAL quetiapine 25 mg tablet sertraline 100 mg tablet simvastatin 40 mg tablet Zofran 4 mg tablet 4 mg PO Q6H PRN (Reason: nausea and vomiting) Qty: 20 0RF Discharge Orders: Discharge ED (Routine); Ordered 06/18/24 Ordered By: Tho Reed Referrals: Amira David FNP [Primary Care Provider] - Discharge Diet: As Directed Discharge Activity: Increase activity as tolerated Patient Instructions: Constipation (ED) Activity Restrictions/Additional Instructions: Take lactulose, mag citrate, and mineral oil at home as instructed. Increase your fiber and fluid intake. Continue taking medications as prescribed. Follow-up with your primary care provider for reevaluation later this week as discussed. Return with any new or concerning symptoms you may have. Coding Level of Care Code ED Kiln Charger for Chg Fwd Documented by User: Rodolfo Ann DO 06/21/24 00:32 HPI - Abdominal Pain 2 General: Chief Complaint: Abdominal Pain Stated Complaint: BM issues Time Seen by Provider: 06/18/24 17:01 Related Data Home Medications Medication Instructions Recorded Confirmed benazepril 20 tab 02/02/20 11/22/21 mg-hydrochlorothiazide 12.5 mg tablet estradiol 2 mg (7.5 mcg/24 hour) vaginal 02/02/20 11/22/21 vaginal ring (Estring) ofloxacin 0.3 % eye drops 02/02/20 11/22/21 quetiapine 25 mg tablet 02/02/20 11/22/21 sertraline 100 mg tablet mg 02/02/20 11/22/21 simvastatin 40 mg tablet mg 02/02/20 11/22/21 aspirin 81 mg capsule 81 mg PO DAILY 10/24/21 11/22/21 estradiol 2 mg (7.5 mcg/24 hour) 1 vag ring vaginal Q90D 10/24/21 11/22/21 vaginal ring (Estring) loratadine 10 mg tablet (Allergy 10 mg PO DAILY 10/24/21 11/22/21 Relief (loratadine)) montelukast 10 mg tablet 10 mg PO DAILY 10/24/21 11/22/21 (Singulair) Previous Rx's Medication Instructions Recorded ondansetron HCl 4 mg tablet 4 mg PO Q6H PRN nausea and 02/02/20 (Zofran) vomiting #20 tabs ciprofloxacin HCl 500 mg tablet 500 mg PO Q12H 7 days #14 tabs 11/22/21 (Cipro) fluconazole 150 mg tablet 150 mg PO DAILY 1 day #1 tab 11/22/21 (Diflucan) ondansetron HCl 4 mg tablet 4 mg PO Q8H #30 tabs 06/18/24 Allergies Allergy/AdvReac Type Severity Reaction Status Date / Time No Known Drug Allergies Allergy Unknown Verified 06/18/24 16:21 PFSH ED 2 PFSH: Social History Smoking and tobacco/nicotine status: never used tobacco/nicotine Course 2 Vital Signs: Vital signs: Vital Signs Temperature 97.9 F 06/18/24 16:16 Pulse Rate 76 06/18/24 19:39 Respiratory Rate 16 06/18/24 16:16 Blood Pressure 179/84 06/18/24 19:39 Pulse Oximetry 98 06/18/24 19:39 Oxygen Delivery Me thod Room Air 06/18/24 16:16 MDM - Abdominal Pain Medical Decision Making Patient presents for a week of constipation as well as abdominal pain and nausea. Has had multiple medication changes recently, important to note that 1 of these medications was starting sertraline after being off of it for some time. Since starting this she has not had a normal bowel movement, and does note increasing anxiety that she thinks is making this worse. She is having associated pain, however has no concerning symptoms to report such as blood in her stool or inability to pass gas. Her labs show evidence of may be a mild dehydration, which I think are contributive to constipation. X-ray obtained did not show any obstructive pattern, however there is large fecal content that I think would benefit from mixture of mineral oil/mag citrate/lactulose. Patient is also given fluids and nausea medication here, and is instructed to take these medications at home. Also encouraged to increase her fluid intake and fiber intake. She is informed to follow-up with her primary care later this week for reevaluation, and to continue taking her medications as prescribed. Return precautions were given. Chart reviewed Lab Data 06/18/24 16:45 06/18/24 16:45 Labs/Radiology: Radiology Impressions Abdomen X-Ray 06/18/24 16:32 IMPRESSION: 1. Nonobstructed bowel gas pattern. 2. Increased fecal content in the colon. 3. Incidental/nonacute findings are listed in the report. Laboratory Results WBC 8.40 10^3/uL (3.29-11.43) 06/18/24 16:45 RBC 4.61 10^6/uL (3.85-5.65) 06/18/24 16:45 Hgb 14.50 g/dL (11.27-16.99) 06/18/24 16:45 Hct 42.4 % (36-47) 06/18/24 16:45 MCV 92.0 fl (85-98) 06/18/24 16:45 MCH 31.5 pg (27-33) 06/18/24 16:45 MCHC 34.2 g/dL (30-55) 06/18/24 16:45 RDW 11.7 % (12.1-15.1) L 06/18/24 16:45 Plt Count 212 10^3/cmm (157-399) 06/18/24 16:45 MPV 10.8 fL (7.4-10.4) H 06/18/24 16:45 Neut % (Auto) 77.1 % 06/18/24 16:45 Lymph % (Auto) 14.5 % 06/18/24 16:45 [place] % (Auto) 6.3 % 06/18/24 16:45 Eos % (Auto) 1.1 % 06/18/24 16:45 Baso % (Auto) 0.6 % 06/18/24 16:45 Neut # (Auto) 6.48 10^3/uL (1.8-7.7) 06/18/24 16:45 Lymph # (Auto) 1.2 10^3/uL (0.8-4.8) 06/18/24 16:45 [place] # (Auto) 0.5 10^3/uL (0.2-0.9) 06/18/24 16:45 Eos # (Auto) 0.1 10^3/uL (0.0-0.8) 06/18/24 16:45 Baso # (Auto) 0.1 10^3/uL (0.0-0.1) 06/18/24 16:45 Nucleated RBC % (auto) 0 % 06/18/24 16:45 Nucleated RBCs # 0.0 /100WBC 06/18/24 16:45 Sodium 132 mmol/L (136-145) L 06/18/24 16:45 Potassium 3.7 mmol/L (3.5-5.1) 06/18/24 16:45 Chloride 93 mmol/L (98-107) L 06/18/24 16:45 Carbon Dioxide 28 mmol/L (22-29) 06/18/24 16:45 Anion Gap 14.7 (5-19) 06/18/24 16:45 BUN 14 mg/dL (8-23) 06/18/24 16:45 Creatinine 0.7 mg/dL (0.5-0.9) 06/18/24 16:45 GFR Calculation Not Reportable 06/18/24 16:45 Glucose 118 mg/dL (65-115) H 06/18/24 16:45 Calculated Osmolality 276 mOsm/kg (285-295) L 06/18/24 16:45 Calcium 9.6 mg/dL (8.5-10.5) 06/18/24 16:45 Total Bilirubin 0.5 mg/dL (0.15-1.2) 06/18/24 16:45 AST 26 U/L (0-32) 06/18/24 16:45 ALT 23 U/L (0-33) 06/18/24 16:45 Alkaline Phosphatase 58 U/L (35-105) 06/18/24 16:45 Total Protein 6.9 g/dL (6.6-8.7) 06/18/24 16:45 Albumin 4.6 g/dL (3.5-5.2) 06/18/24 16:45 Globulin 2.3 g/dL (1.3-4.6) 06/18/24 16:45 Lipase 37 U/L (13-60) 06/18/24 16:45 Urine Color Yellow (Yellow) 06/18/24 17:12 Urine Appearance Cloudy (CLEAR) A 06/18/24 17:12 Urine pH 7.5 (5-7) 06/18/24 17:12 Ur Specific [place] 1.015 (1.005-1.030) 06/18/24 17:12 Urine Protein Negative (Negative) 06/18/24 17:12 Urine Glucose (UA) Negative (Normal) 06/18/24 17:12 Urine Ketones Trace (Negative) 06/18/24 17:12 Urine Blood Negative (Negative) 06/18/24 17:12 Urine Nitrate Negative (Negative) 06/18/24 17:12 Urine Bilirubin Negative (Negative) 06/18/24 17:12 Urine Urobilinogen 1.0 mg/dL (Negative) 06/18/24 17:12 Ur Leukocyte Esterase Trace (Negative) A 06/18/24 17:12 Urine RBC 0-2 /hpf (0-2) 06/18/24 17:12 Urine WBC 0-5 /hpf (0-5) 06/18/24 17:12 Ur Squamous Epith Cells 0-5 /hpf (0-5) 06/18/24 17:12 Amorphous Sediment Not Reportable 06/18/24 17:12 Urine Bacteria None seen /hpf (NONE) 06/18/24 17:12 Hyaline Casts 0.40 /lpf 06/18/24 17:12 Discharge Plan Discharge Patient Disposition: Home Clinical Impression: Constipation Qualifiers: Constipation type: unspecified constipation type Qualified Code(s): K59.00 - Constipation, unspecified Condition: Stable Prescriptions: New ondansetron HCl 4 mg tablet 4 mg PO Q8H Qty: 30 0RF No Action loratadine [Allergy Relief (loratadine)] 10 mg tablet 10 mg PO DAILY montelukast [Singulair] 10 mg tablet 10 mg PO DAILY Estring 2 mg (7.5 mcg /24 hour) ring 1 vag ring vaginal Q90D aspirin 81 mg capsule 81 mg PO DAILY ciprofloxacin HCl [Cipro] 500 mg tablet 500 mg PO Q12H 7 Days Qty: 14 0RF fluconazole [Diflucan] 150 mg tablet 150 mg PO DAILY 1 Days Qty: 1 0RF ofloxacin 0.3 % drops benazepril-hydrochlorothiazide 20-12.5 mg tablet Estring 2 mg (7.5 mcg /24 hour) ring VAGINAL quetiapine 25 mg tablet sertraline 100 mg tablet simvastatin 40 mg tablet Zofran 4 mg tablet 4 mg PO Q6H PRN (Reason: nausea and vomiting) Qty: 20 0RF Discharge Orders: Discharge ED (Routine); Ordered 06/18/24 Ordered By: Tho Reed Referrals: Amira David FNP [Primary Care Provider] - Discharge Diet: As Directed Discharge Activity: Increase activity as tolerated Patient Instructions: Constipation (ED) Activity Restrictions/Additional Instructions: Take lactulose, mag citrate, and mineral oil at home as instructed. Increase your fiber and fluid intake. Continue taking medications as prescribed. Follow-up with your primary care provider for reevaluation later this week as discussed. Return with any new or concerning symptoms you may have. Coding Level of Care Code ED Kiln Charger for Rakesh Brink
[2024-06-18 17:45] LABS: Charge for UA Resulting for Rev
[2024-06-18] MEDS: ondansetron 2 mg/ML SDV 2 mL 4 MG IVP (17:55)
[2024-06-18] MEDS: mineral oil 30 mL UDC PO (17:57)
[2024-06-18] MEDS: lactulose oral liq 20 gm/30 mL UDC 30 GM PO (17:57)
[2024-06-18] MEDS: magnesium citrate Btl 296 mL PO (17:58)
[2024-06-18] MEDS: sodium chloride 0.9% 1,000 ML 999 ML IV (17:58)
[2024-06-18 18:04] LABS: Bilirubin Urine Negative (Negative); Blood Urine Negative (Negative); Glucose Urine UA Negative (Normal); Ketones Urine Trace (Negative); Leukocyte Esterase Urine Trace (Negative); Nitrate Urine Negative (Negative); Protein Urine Negative (Negative); Specific Gravity, Urine 1.015 (1.005-1.030); Urine Appearance Cloudy (CLEAR); Urine Color Yellow (Yellow); pH Urine 7.5 (5-7)
[2024-06-18 18:09] LABS: Bacteria Urine None Seen /hpf; RBC Urine 0-2 /hpf (0-2); Squamous Epithelial Cell Urine 0-5 /hpf (0-5); WBC Urine 0-5 /hpf (0-5)
[2024-06-18 18:28] LABS: Add Urine Culture? No
--- NOTE | 2024-06-18 19:15 | PC.NURSE ---
Patient requested nausea medication prescription prior to discharge. Provider Brianna notified of patient request.
[2024-06-18 19:39] VITALS: BP 179/84; PULSE 76; O2SAT 98
== END 2024-06-18 19:41 | disposition home or self-care (01) ==
PROVIDERS: Physician Assistant; Emergency Provider Physician Assistant; PCP Nurse Practitioner Family
DX: K59.00 Constipation, unspecified (principal); Z79.82 Long term (current) use of aspirin
CPT/HCPCS: 36415; 74019; 80053; 81003; 81015; 83690; 85025; 96374; 99284; J2405; J7030

== ENCOUNTER 2024-06-21 08:08 | Emergency (ER) | payer MEDICARE, SELFPAY ==
[2024-06-21 08:21] VITALS: BP 185/83; PULSE 63; RESP 18; TEMP 36.8; O2SAT 99; BMI 26.4
--- NOTE | 2024-06-21 08:43 | ED_ITS ---
HPI - Anxiety General: Chief Complaint: Anxiety Stated Complaint: anxiety Time Seen by Provider: 06/21/24 08:30 History of Present Illness: 74-year-old female presents emergency ro om with severe anxiety. She recently was titrated off sertraline she tried another medication. Evidently did not work very well I will putting her back on sertraline and she titrated up from 50-100 her anxiety actually worsened does increase the dose. In addition to the sertraline she was also on Seroquel as an adjunct and had been titrated off of that. She titrated off because she felt like the medications are not working well. In retrospect now she feels that her anxiety is worse because of increasing life stressors and the medication probably was working better than she realized since she has been far worse symptoms since getting off of it. Additionally she recently had making a trip back to her home area of [place] and on returning back her blood pressure was elevated so they increased her hydrochlorothiazide she has not taken any of her blood pressure medicines today. Associated symptoms: Deny chest pain, chills or fever(s) Related Data Home Medications Medication Instructions Recorded Confirmed estradiol 2 mg (7.5 mcg/24 hour) 1 vag ring vaginal .Q90D 02/02/20 06/21/24 vaginal ring (Estring) sertraline 100 mg tablet 150 mg PO DAILY 02/02/20 06/21/24 aspirin 81 mg capsule 81 mg PO DAILY 10/24/21 06/21/24 loratadine 10 mg tablet (Allergy 10 mg PO DAILY 10/24/21 06/21/24 Relief (loratadine)) benazepril 20 1 tab PO DAILY 06/21/24 06/21/24 mg-hydrochlorothiazide 25 mg tablet cholecalciferol (vitamin D3) 50 50 mcg PO DAILY 06/21/24 06/21/24 mcg (2,000 unit) tablet (Vitamin D3) cranberry 500 mg capsule 500 mg PO BID 06/21/24 06/21/24 dorzolamide 2 % eye drops 1 drp ophthalmic (eye) BID 06/21/24 06/21/24 glucosamine sulf dipot 1 cap PO DAILY 06/21/24 06/21/24 chlr,msm,chond 550 mg-C 30 mg-pablo 1 mg capsule (Glucosamine Chondroitin) latanoprost 0.005 % eye drops 1 drp ophthalmic (eye) QPM 06/21/24 06/21/24 multivitamin 1 tab PO QAM 06/21/24 06/21/24 omega 2-txp-rid-fish oil 1,000 mg 1 cap PO DAILY 06/21/24 06/21/24 (120 mg-180 mg) capsule (Fish Oil) ondansetron HCl 4 mg tablet 4 mg PO Q8H PRN Nausea 06/21/24 06/21/24 sertraline 50 mg tablet 50 mg PO DAILY 06/21/24 06/21/24 simvastatin 20 mg tablet 20 mg PO QPM 06/21/24 06/21/24 timolol maleate 0.5 % eye drops 1 drp ophthalmic (eye) BID 06/21/24 06/21/24 Previous Rx's Medication Instructions Recorded lorazepam 2 mg tablet (Ativan) 1 - 2 mg (0.5 - 1 x 2 mg) PO Q8H 06/21/24 PRN anxiety #14 tabs Allergies Allergy/AdvReac Type Severity Reaction Status Date / Time No Known Drug Allergies Allergy Unknown Verified 06/18/24 16:21 Review of Systems Const: Denies: fever(s) or chills Card: Denies: chest pain Resp: Denies: dyspnea GI: Denies: abdominal pain : Denies: dysuria, urinary frequency or urinary urgency Musc: Denies: neck pain or back pain Skin/Breast: Denies: rash PFSH ED PFSH: Social History Smoking and tobacco/nicotine status: never used tobacco/nicotine Physical Exam Const: COMMON NORMALS: no acute distress GENERAL APPEARANCE: cooperative and comfortable ORIENTATION/CONSCIOUSNESS: Yes awake, Yes oriented to person, Yes oriented to place and Yes oriented to time HENMT: COMMON NORMALS: normocephalic, atraumatic and hearing grossly normal bilaterally HEAD & SCALP: normocephalic and atraumatic Resp: COMMON NORMALS: normal respiratory effort, No retractions and No use of accessory muscles Neuro: SENSORIUM/ORIENTATION: Yes oriented to person, Yes oriented to place and Yes oriented to time Course Vital Signs: Vital signs: Vital Signs Temperature 98.2 F 06/21/24 08:21 Pulse Rate 76 06/21/24 11:00 Respiratory Rate 18 06/21/24 11:00 Blood Pressure 178/78 06/21/24 11:00 Pulse Oximetry 96 06/21/24 11:00 Oxygen Delivery Me thod Room Air 06/21/24 08:21 MDM - Anxiety Medical Decision Making Patient having severe anxiety. In the past she was on sertraline 150 a day as well as augmented by Seroquel does seem to be working well for a time she thought it was not working as well earlier this summer and started titrating off of that she found that it actually been working better than she thought and was having severe anxiety with trying to reintroduce the sertraline she is having more difficulty. Some of may be just side effects of medicine some of it may be just the underlying anxiety she had to begin with some patients at times will have increasing symptoms when the medicine is first initiated that may also be a factor. Encouraged her to continue on the sertraline at 50 mg daily for now talk to her primary care doctor about a slower titration increase. In the past she has been as high as 150 and tolerated it well would expect that over time she should be able to titrate back up to that level. Additionally we will give her Ativan to use every 8 hours as needed. She is already made an appointment to follow-up with a primary care doctor tomorrow discuss treatment options. No radiology studies performed this visit Discharge Plan Discharge Patient Disposition: Home Clinical Impression: Acute anxiety Condition: Stable Prescriptions: New Ativan 2 mg tablet 1 - 2 mg PO Q8H PRN (Reason: anxiety) Qty: 14 0RF No Action loratadine [Allergy Relief (loratadine)] 10 mg tablet 10 mg PO DAILY aspirin 81 mg capsule 81 mg PO DAILY Estring 2 mg (7.5 mcg /24 hour) ring 1 vag ring VAGINAL .Q90D sertraline 100 mg tablet 150 mg PO DAILY multivitamin Tablet 1 tab PO QAM latanoprost 0.005 % drops 1 drp ophthalmic (eye) QPM benazepril-hydrochlorothiazide 20-25 mg tablet 1 tab PO DAILY simvastatin 20 mg tablet 20 mg PO QPM timolol maleate 0.5 % drops 1 drp ophthalmic (eye) BID sertraline 50 mg Tablet 50 mg PO DAILY cranberry 500 mg Capsule 500 mg PO BID Rx Instructions: administer with meals dorzolamide 2 % drops 1 drp ophthalmic (eye) BID Vitamin D3 50 mcg (2,000 unit) Tablet 50 mcg PO DAILY Fish Oil 1,000 mg (120 mg-180 mg) Capsule 1 cap PO DAILY Glucosamine Chondroitin 550-30-1 mg Capsule 1 cap PO DAILY ondansetron HCl 4 mg tablet 4 mg PO Q8H PRN (Reason: Nausea) Discharge Orders: Discharge ED (Routine); Ordered 06/21/24 Ordered By: Rodolfo Ann Referrals: Amira David, CROCHETER HAND [Primary Care Provider] - Discharge Diet: Usual diet Discharge Activity: Increase activity as tolerated Patient Instructions: Anxiety (ED), Opioid Safety, Pain Management Activity Restrictions/Additional Instructions: Thank you for choosing [facility] for your healthcare needs today. It is very important that you follow up as instructed or that you return to the [facility] should you have concerns or if your condition changes or worsens in any way. You are seen in the emergency room for acute anxiety. This sometimes can be a side effect of the medication that you titrate up you may need to do a slower titration to avoid the side effects. You were given a prescription for Ativan to use as needed. Recommend you continue your sertraline at 50 mg daily and follow-up with your primary care doctor to discuss further treatment options of surgery with Coding Level of Care Code ED Trigonometry Tutor for Rakesh Brink
[2024-06-21] MEDS: losartan 50 mg Tablet 100 MG PO (10:09)
[2024-06-21] MEDS: hydroCHLOROthiazide 25 mg Tablet 50 MG PO (10:09)
[2024-06-21 10:10] VITALS: BP 171/84; PULSE 84; RESP 16
[2024-06-21] MEDS: LORazepam 2 mg/mL INJ 1 mL 1 MG IVP (10:15)
[2024-06-21 11:00] VITALS: BP 178/78; PULSE 76; RESP 18; O2SAT 96
== END 2024-06-21 11:02 | disposition home or self-care (01) ==
PROVIDERS: Emergency Provider Family Medicine; PCP Nurse Practitioner Family
DX: F41.9 Anxiety disorder, unspecified (principal); Z79.82 Long term (current) use of aspirin
CPT/HCPCS: 96374; 99284; J2060

== ENCOUNTER 2024-06-24 14:10 | Inpatient (IN) | payer MEDICARE, SELFPAY ==
[2024-06-24] VITALS (9 sets, daily range): BP systolic 146–179; BP diastolic 79–93; PULSE 66–77; RESP 17–18; TEMP 36.4–36.5; O2SAT 94–99; BMI 26.0
--- NOTE | 2024-06-24 14:11 | XRR_ITS ---
PROCEDURE INFORMATION: Exam: XR Chest Exam date and time: 06/24/2024 2:32 PM Age: 74 years old Clinical indication: Shortness of breath; Patient HX: Weakness; SOB TECHNIQUE: Imaging protocol: Radiologic exam of the chest. Views: 1 view. COMPARISON: CR XR chest 1V [id number] 11/25/2018 9:43 PM FINDINGS: Lungs: Bibasilar linear atelectatic/fibrotic changes. No focal consolidation. Pleural spaces: Unremarkable. No pleural effusion. No pneumothorax. Heart/Mediastinum: Unremarkable. No cardiomegaly. Vasculature: Unfolding of the thoracic aorta. Bones/joints: Mild degenerative disease of bilateral acromioclavicular joints. XR/XR chest 1V portable [id number] IMPRESSION: No acute cardiopulmonary process.
--- NOTE | 2024-06-24 15:13 | ECG_ITS ---
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 Measurements Intervals [place] Rate: 75 P: 81 [place]: 151 QRS: -22 QRSD: 81 T: 76 QT: 378 QTc: 422 Interpretive Statements SINUS RHYTHM WITH OCCASIONAL SUPRAVENTRICULAR PREMATURE COMPLEXES POSSIBLE RIGHT VENTRICULAR CONDUCTION DELAY [RSR (QR) IN V1/V2] SEPTAL MYOCARDIAL INFARCTION , PROBABLY OLD [40+ ms Q WAVE IN V1/V2] Compared to ECG 11/26/2018 09:26:51 No significant changes Electronically Signed On 06-24-2024 15:41:22 CDT by Sal Cantu M.D. [email or web address]
[2024-06-24 15:28] LABS: Basophils % 0.4 %; Eosinophils % 0.5 %; Hematocrit 40.8 % (36-47); Lymphocytes # 0.9 10^3/uL (0.8-4.8); Lymphocytes % 11.1 %; Mean Corpuscular HGB Conc 35.3 g/dL (30-55); Mean Corpuscular Hemoglobin 31.6 pg (27-33); Mean Corpuscular Volume 89.5 fl (85-98); Mean Platelet Volume 10.2 fL (7.4-10.4); Monocytes # 0.5 10^3/uL (0.2-0.9); Neutrophils # 6.32 10^3/uL (1.8-7.7); Neutrophils % 81.7 %; Nucleated Red Blood Cells % 0 %; Platelet Count 189 10^3/cmm (157-399); Red Blood Count 4.56 10^6/uL (3.85-5.65); Red Cell Distribution Width 11.9 % (12.1-15.1); White Blood Count 7.73 10^3/uL (3.29-11.43)
--- NOTE | 2024-06-24 15:45 | ED_ITS ---
HPI - Weakness 2 General: Chief complaint: Weakness Stated complaint: Weakness Time Seen by Provider: 06/24/24 15:15 History of Present Illness: 74-year-old female who comes in complain ing of anxiety. She states that she feels like her skin is crawling and she has a sense of panic. She states this is the third visit she has had to the emergency department in the past week. She recently was restarted on her sertraline, 50 mg daily. She states she was having symptoms prior to restarting the sertraline. She states previously she had been put on Effexor and because of her history of glaucoma, they had titrated her back off of the Effexor. When seen here a few days ago, she was given IV fluids and a dose of IV Ativan and states she felt better. She was given a prescription of Ativan 2 mg tablets which she took 1 full tablet and she states it made her feel very confused and somnolent. She has not taken a dose since that time. She took a full 2 mg tablet. She also previously had been on Seroquel which they do also titrated her off of. She states she is nauseated and has not been drinking and eating well. She feels lightheaded and has genralized weakness when she stands up and has been having difficulty walking the past 2 days. Per her significant other, she is also been more confused. She denies chest pain or palpitations. Associated symptoms: Denies chest pain, chills, dysuria or fever(s) Review of Systems 2 Const: Denies: fever(s) or chills Card: Denies: chest pain Resp: Denies: dyspnea GI: Denies: abdominal pain : Denies: dysuria, urinary frequency or urinary urgency Musc: Denies: neck pain or back pain Skin/Breast: Denies: rash Psych: Reports: anxiety, panic attacks, sleeping less and difficulty concentrating; Denies: suicidal ideation or homicidal ideation PFSH ED 2 PFSH: Social History Smoking and tobacco/nicotine status: never used tobacco/nicotine Physical Exam 2 Const: COMMON NORMALS: no acute distress GENERAL APPEARANCE: cooperative and comfortable ORIENTATION/CONSCIOUSNESS: Yes awake, Yes oriented to person, Yes oriented to place and Yes oriented to time HENMT: COMMON NORMALS: normocephalic, atraumatic and hearing grossly normal bilaterally HEAD & SCALP: normocephalic and atraumatic Resp: COMMON NORMALS: normal respiratory effort, No retractions and No use of accessory muscles Neuro: SENSORIUM/ORIENTATION: Yes oriented to person, Yes oriented to place and Yes oriented to time Psych: COMMON NORMALS: mental status grossly normal and Normal thought process present THOUGHT PROCESS: Normal thought process present OTHER: Patient appears anxious, hyperventilating. Course 2 Consultations: Consultation #1: Discussed with hospitalist for admission, Dr. Lorenzo Time: 17:16 Vital Signs: Vital signs: Vital Signs Temperature 97.7 F 06/24/24 14:37 Pulse Rate 76 06/24/24 14:37 Respiratory Rate 18 06/24/24 14:37 Blood Pressure 146/79 06/24/24 14:37 Pulse Oximetry 99 06/24/24 14:37 Oxygen Delivery Me thod Room Air 06/24/24 14:37 MDM - Weakness Medical Decision Making 74-year-old female with a history of anxiety, recently restarted on her sertraline. I suspect that her anxiety symptoms preceded the restart of sertraline. I suspect the she just has not had time for the sertraline to kick in. She was seen here, given 2 mg Ativan tablets and took 1 tablet which made her feel bad so she has not taken any more. She presents today because of ongoing anxiety feelings. She states she has not been eating and drinking well. Will check labs. Will start an IV and give her IV fluids as well as a small dose of Ativan, 0.5 mg. Muscle going to give her Vistaril 25 mg orally to see if that helps with the anxiety and the skin crawling sensation. Differential includes electrolyte abnormality, urinary tract infection, anxiety, hyperthyroidism, medication side effect Patient's been evaluated in the emergency department. She is an IV placed and labs obtained. On telemetry evaluation today, she is more hypokalemic with a sodium of 126. On 826, she was 134. I suspect this is a combination of the effects of the sertraline as well as the fact that she has not been eating because of nausea and increased anxiety. Given the worsening hyponatremia, I feel the patient probably would benefit from admission for sodium correction. Will discuss with the hospitalist Lab Data Patient is more hyponatremic today with a sodium of 126. In comparison, 4 days ago, her sodium was 134. In October is 138 so she does have chronic hyponatremia but not to the degree as it is today. 06/24/24 15:15 06/24/24 15:15 Radiology Impressions Chest X-Ray 06/24/24 14:11 IMPRESSION: No acute cardiopulmonary process. Laboratory Results WBC 7.73 10^3/uL (3.29-11.43) 06/24/24 15:15 RBC 4.56 10^6/uL (3.85-5.65) 06/24/24 15:15 Hgb 14.40 g/dL (11.27-16.99) 06/24/24 15:15 Hct 40.8 % (36-47) 06/24/24 15:15 MCV 89.5 fl (85-98) 06/24/24 15:15 MCH 31.6 pg (27-33) 06/24/24 15:15 MCHC 35.3 g/dL (30-55) 06/24/24 15:15 RDW 11.9 % (12.1-15.1) L 06/24/24 15:15 Plt Count 189 10^3/cmm (157-399) 06/24/24 15:15 MPV 10.2 fL (7.4-10.4) 06/24/24 15:15 Neut % (Auto) 81.7 % 06/24/24 15:15 Lymph % (Auto) 11.1 % 06/24/24 15:15 [place] % (Auto) 6.0 % 06/24/24 15:15 Eos % (Auto) 0.5 % 06/24/24 15:15 Baso % (Auto) 0.4 % 06/24/24 15:15 Neut # (Auto) 6.32 10^3/uL (1.8-7.7) 06/24/24 15:15 Lymph # (Auto) 0.9 10^3/uL (0.8-4.8) 06/24/24 15:15 [place] # (Auto) 0.5 10^3/uL (0.2-0.9) 06/24/24 15:15 Eos # (Auto) 0.0 10^3/uL (0.0-0.8) 06/24/24 15:15 Baso # (Auto) 0.0 10^3/uL (0.0-0.1) 06/24/24 15:15 Nucleated RBC % (auto) 0 % 06/24/24 15:15 Nucleated RBCs # 0.0 /100WBC 06/24/24 15:15 Sodium 126 mmol/L (136-145) L 06/24/24 15:15 Potassium 3.5 mmol/L (3.5-5.1) 06/24/24 15:15 Chloride 91 mmol/L (98-107) L 06/24/24 15:15 Carbon Dioxide 20 mmol/L (22-29) L 06/24/24 15:15 Anion Gap 18.5 (5-19) 06/24/24 15:15 BUN 11 mg/dL (8-23) 06/24/24 15:15 Creatinine 0.5 mg/dL (0.5-0.9) 06/24/24 15:15 GFR Calculation Not Reportable 06/24/24 15:15 Glucose 121 mg/dL (65-115) H 06/24/24 15:15 Calculated Osmolality 263 mOsm/kg (285-295) L 06/24/24 15:15 Calcium 9.0 mg/dL (8.5-10.5) 06/24/24 15:15 Magnesium 1.9 mg/dL (1.7-2.3) 06/24/24 15:15 Total Bilirubin 0.7 mg/dL (0.15-1.2) 06/24/24 15:15 AST 23 U/L (0-32) 06/24/24 15:15 ALT 24 U/L (0-33) 06/24/24 15:15 Alkaline Phosphatase 53 U/L (35-105) 06/24/24 15:15 Total Protein 6.4 g/dL (6.6-8.7) L 06/24/24 15:15 Albumin 4.1 g/dL (3.5-5.2) 06/24/24 15:15 Globulin 2.3 g/dL (1.3-4.6) 06/24/24 15:15 TSH 0.90 uIU/mL (0.27-4.20) 06/24/24 15:15 Urine Color Arnold (Yellow) A 06/24/24 16:00 Urine Appearance Clear (CLEAR) 06/24/24 16:00 Urine pH 8.0 (5-7) A 06/24/24 16:00 Ur Specific [place] 1.010 (1.005-1.030) 06/24/24 16:00 Urine Protein Negative (Negative) 06/24/24 16:00 Urine Glucose (UA) Negative (Normal) 06/24/24 16:00 Urine Ketones 1+ (Negative) H 06/24/24 16:00 Urine Blood Negative (Negative) 06/24/24 16:00 Urine Nitrate Negative (Negative) 06/24/24 16:00 Urine Bilirubin Negative (Negative) 06/24/24 16:00 Urine Urobilinogen 0.2 mg/dL (Negative) 06/24/24 16:00 Ur Leukocyte Esterase 1+ (Negative) A 06/24/24 16:00 Urine RBC 0-2 /hpf (0-2) 06/24/24 16:00 Urine WBC 0-5 /hpf (0-5) 06/24/24 16:00 Ur Squamous Epith Cells 0-5 /hpf (0-5) 06/24/24 16:00 Amorphous Sediment Not Reportable 06/24/24 16:00 Urine Bacteria None seen /hpf (NONE) 06/24/24 16:00 Hyaline Casts 0-4 /lpf H 06/24/24 16:00 No radiology studies performed this visit ED provider radiology interpretation(s): No radiologic studies ordered today EKG Data EKG 1: I personally reviewed and interpreted this EKG as follows: EKG interpretation date: 06/24/24 EKG interpretation time: 15:13 Interpretation: Normal sinus rhythm, occasional PACs, no acute ST segment elevation or depression or acute ischemic changes per my interpretation. Discharge Plan Discharge Patient Disposition: Admitted As Inpatient Clinical Impression: Acute hyponatremia, Anxiety Condition: Stable Prescriptions: No Action loratadine [Allergy Relief (loratadine)] 10 mg tablet 10 mg PO DAILY aspirin 81 mg capsule 81 mg PO DAILY Estring 2 mg (7.5 mcg /24 hour) ring 1 vag ring VAGINAL .Q90D sertraline 100 mg tablet 150 mg PO DAILY multivitamin Tablet 1 tab PO QAM latanoprost 0.005 % drops 1 drp ophthalmic (eye) QPM benazepril-hydrochlorothiazide 20-25 mg tablet 1 tab PO DAILY simvastatin 20 mg tablet 20 mg PO QPM timolol maleate 0.5 % drops 1 drp ophthalmic (eye) BID sertraline 50 mg Tablet 50 mg PO DAILY cranberry 500 mg Capsule 500 mg PO BID Rx Instructions: administer with meals dorzolamide 2 % drops 1 drp ophthalmic (eye) BID Vitamin D3 50 mcg (2,000 unit) Tablet 50 mcg PO DAILY Fish Oil 1,000 mg (120 mg-180 mg) Capsule 1 cap PO DAILY Glucosamine Chondroitin 550-30-1 mg Capsule 1 cap PO DAILY ondansetron HCl 4 mg tablet 4 mg PO Q8H PRN (Reason: Nausea) Ativan 2 mg tablet 1 - 2 mg PO Q8H PRN (Reason: anxiety) Qty: 14 0RF Referrals: Amira David FNP [Primary Care Provider] - Coding Level of Care Code ED Pigs Feet Cleaner for Chg Fwd Related Data Home Medications Medication Instructions Recorded Confirmed estradiol 2 mg (7.5 mcg/24 hour) 1 vag ring vaginal .Q90D 02/02/20 06/21/24 vaginal ring (Estring) sertraline 100 mg tablet 150 mg PO DAILY 02/02/20 06/21/24 aspirin 81 mg capsule 81 mg PO DAILY 10/24/21 06/21/24 loratadine 10 mg tablet (Allergy 10 mg PO DAILY 10/24/21 06/21/24 Relief (loratadine)) benazepril 20 1 tab PO DAILY 06/21/24 06/21/24 mg-hydrochlorothiazide 25 mg tablet cholecalciferol (vitamin D3) 50 50 mcg PO DAILY 06/21/24 06/21/24 mcg (2,000 unit) tablet (Vitamin D3) cranberry 500 mg capsule 500 mg PO BID 06/21/24 06/21/24 dorzolamide 2 % eye drops 1 drp ophthalmic (eye) BID 06/21/24 06/21/24 glucosamine sulf dipot 1 cap PO DAILY 06/21/24 06/21/24 chlr,msm,chond 550 mg-C 30 mg-pablo 1 mg capsule (Glucosamine Chondroitin) latanoprost 0.005 % eye drops 1 drp ophthalmic (eye) QPM 06/21/24 06/21/24 multivitamin 1 tab PO QAM 06/21/24 06/21/24 omega 0-dog-uwc-fish oil 1,000 mg 1 cap PO DAILY 06/21/24 06/21/24 (120 mg-180 mg) capsule (Fish Oil) ondansetron HCl 4 mg tablet 4 mg PO Q8H PRN Nausea 06/21/24 06/21/24 sertraline 50 mg tablet 50 mg PO DAILY 06/21/24 06/21/24 simvastatin 20 mg tablet 20 mg PO QPM 06/21/24 06/21/24 timolol maleate 0.5 % eye drops 1 drp ophthalmic (eye) BID 06/21/24 06/21/24 Previous Rx's Medication Instructions Recorded lorazepam 2 mg tablet (Ativan) 1 - 2 mg (0.5 - 1 x 2 mg) PO Q8H 06/21/24 PRN anxiety #14 tabs Allergies Allergy/AdvReac Type Severity Reaction Status Date / Time No Known Drug Allergies Allergy Unknown Verified 06/18/24 16:21
[2024-06-24 15:54] LABS: Alanine Aminotransferase 24 U/L (0-33); Albumin Level 4.1 g/dL (3.5-5.2); Alkaline Phosphatase 53 U/L (35-105); Anion Gap 18.5 (5-19); Aspartate Amino Transferase 23 U/L (0-32); Blood Urea Nitrogen 11 mg/dL (8-23); Carbon Dioxide 20 mmol/L (22-29); Chloride 91 mmol/L (98-107); Creatinine Clr Calc Pharmacy 51.5268; Globulin 2.3 g/dL (1.3-4.6); Glucose 121 mg/dL (65-115); Osmolality Calculated 263 mOsm/kg (285-295); Potassium 3.5 mmol/L (3.5-5.1); Sodium 126 mmol/L (136-145); Total Bilirubin 0.7 mg/dL (0.15-1.2); Total Protein 6.4 g/dL (6.6-8.7)
[2024-06-24 16:06] LABS: Magnesium 1.9 mg/dL (1.7-2.3)
[2024-06-24] MEDS: hyDROXYzine 25 mg Capsule PO (16:09)
[2024-06-24 16:13] LABS: Charge for UA Resulting for Rev
[2024-06-24 16:16] LABS: Bilirubin Urine Negative (Negative); Blood Urine Negative (Negative); Glucose Urine UA Negative (Normal); Ketones Urine 1+ (Negative); Leukocyte Esterase Urine 1+ (Negative); Nitrate Urine Negative (Negative); Protein Urine Negative (Negative); Urine Appearance Clear (CLEAR); Urobilinogen Urine 0.2 mg/dL (Negative)
[2024-06-24 16:18] LABS: Bacteria Urine None Seen /hpf; Hyaline Casts Urine 0-4 /lpf; RBC Urine 0-2 /hpf (0-2); Squamous Epithelial Cell Urine 0-5 /hpf (0-5); WBC Urine 0-5 /hpf (0-5)
[2024-06-24] MEDS: sodium chloride 0.9% 1,000 ML 999 ML IV (16:24)
[2024-06-24] MEDS: LORazepam 2 mg/mL INJ 1 mL 0.5 MG IVP (16:24)
[2024-06-24 16:31] LABS: Urine Color Orange (Yellow)
--- NOTE | 2024-06-24 17:34 | P.HP_ITS ---
Providers/Chief Complaint 2 Primary Care Provider: RYAN Atkinson Chief Complaint: Weakness History of Present Illness Nadya Diaz is a 74 year old female with history of hypertension, anxiety presenting with chief complaint of generalized weakness and anxiety worsening. Patient is stating that she has been weaned off from sertraline and was started on different medication which was not recommended for glaucoma patient is stating that she has started taking sertraline 50 mg for last 2 weeks but thinks her anxiety is not under control, she seems to have generalized anxiety disorder. Has not seen a psychiatrist. Her medications are being adjusted by the PCP. In last few days she has not eaten well secondary to nausea she has not vomiting no recent diarrhea. Review of Systems 2 Const: Denies: fever(s) Eyes: Denies: change in vision ENMT: Denies: throat pain Card: Denies: chest pain Resp: Denies: dyspnea : Denies: flank pain Musc: Denies: neck pain Skin/Breast: Denies: rash Neuro: Reports: behavioral changes; Denies: headache(s) Endo: Reports: tired all the time Medications/Allergies Home Medications Medication Instructions Recorded Confirmed Last Taken Type estradiol 2 mg (7.5 mcg/24 hour) 1 vag ring vaginal .Q90D 02/02/20 06/21/24 Unknown History vaginal ring (Estring) sertraline 100 mg tablet 150 mg PO DAILY 02/02/20 06/21/24 Unknown History aspirin 81 mg capsule 81 mg PO DAILY 10/24/21 06/21/24 06/20/24 History loratadine 10 mg tablet (Allergy 10 mg PO DAILY 10/24/21 06/21/24 06/20/24 History Relief (loratadine)) benazepril 20 1 tab PO DAILY 06/21/24 06/21/24 06/20/24 History mg-hydrochlorothiazide 25 mg tablet cholecalciferol (vitamin D3) 50 50 mcg PO DAILY 06/21/24 06/21/24 06/20/24 History mcg (2,000 unit) tablet (Vitamin D3) cranberry 500 mg capsule 500 mg PO BID 06/21/24 06/21/24 06/20/24 History dorzolamide 2 % eye drops 1 drp ophthalmic (eye) BID 06/21/24 06/21/24 06/20/24 History glucosamine sulf dipot 1 cap PO DAILY 06/21/24 06/21/24 06/20/24 History chlr,msm,chond 550 mg-C 30 mg-pablo 1 mg capsule (Glucosamine Chondroitin) latanoprost 0.005 % eye drops 1 drp ophthalmic (eye) QPM 06/21/24 06/21/24 06/20/24 History lorazepam 2 mg tablet (Ativan) 1 - 2 mg (0.5 - 1 x 2 mg) PO Q8H 06/21/24 Unknown Rx PRN anxiety #14 tabs multivitamin 1 tab PO QAM 06/21/24 06/21/24 06/20/24 History omega 0-nsw-zod-fish oil 1,000 mg 1 cap PO DAILY 06/21/24 06/21/24 06/20/24 History (120 mg-180 mg) capsule (Fish Oil) ondansetron HCl 4 mg tablet 4 mg PO Q8H PRN Nausea 06/21/24 06/21/24 Unknown History sertraline 50 mg tablet 50 mg PO DAILY 06/21/24 06/21/24 06/20/24 History simvastatin 20 mg tablet 20 mg PO QPM 06/21/24 06/21/24 06/20/24 History timolol maleate 0.5 % eye drops 1 drp ophthalmic (eye) BID 06/21/24 06/21/24 06/20/24 History Allergies Allergy/AdvReac Type Severity Reaction Status Date / Time No Known Drug Allergies Allergy Unknown Verified 06/18/24 16:21 PFSH Acute 2 PFSH: Medical History HTN (hypertension) Anxiety Social History (Updated 06/24/24 @ 19:07 by Tamela Funez MD) Smoking and tobacco/nicotine status: never used tobacco/nicotine Alcohol intake: never Substance/Drug Use: never Vitals/I&O/Wt Last Vital Signs Temp 97.7 F 06/24/24 14:37 Pulse 76 06/24/24 14:37 Resp 18 06/24/24 14:37 BP 146/79 06/24/24 14:37 Pulse Ox 99 06/24/24 14:37 O2 Del Method Room Air 06/24/24 14:37 Weight last 48 hrs Weight 62.596 kg Physical Exam 2 Narrative: Patient is extremely dry and dehydrated Awake and alert GCS 15 Nonfocal exam She seems pretty calm her blood pressure and heart rate is within normal range During my evaluation she kept asking me about giving her any benzodiazepines S1, S2 Currently on room air Nonfocal neuroexam GCS 15 at the bedside Data 06/24/24 15:15 06/24/24 15:15 A&P Assessment and plan (1) Acute anxiety: (2) Constipation: Qualifiers: Constipation type: unspecified constipation type Qualified Code(s): K 59.00 - Constipation, unspecified (3) Acute hyponatremia: Plan Hyponatremia Seems to be related to dehydration Hypovolemic hyponatremia Monitor sodium level every 4 hours Neurochecks Start IV fluids at gentle maintenance rate Patient is asking for anxiolytics I do believe she would benefit from a psychiatry evaluation DVT prophylaxis: Lovenox I will hold her hydrochlorothiazide for now She probably will need change of her antihypertensive regimen. Full code Attestations 2 Medical Necessity Statement*: More than 2 midnights anticipated. Diagnoses Acute anxiety F41.9 Constipation K59.00 Constipation type: unspecified constipation type Acute hyponatremia E87.1
[2024-06-24 18:42] LABS: Adenovirus Not Detected (NOT DETECT); Chlamydia Pneumoniae Not Detected (NOT DETECT); Coronavirus 229E,HKU1,NL63,OC4 Not Detected (NOT DETECT); Human Metapneumovirus Not Detected (NOT DETECT); Human Rhinovirus/Enterovirus Not Detected (NOT DETECT); Influenza A Not Detected (NOT DETECT); Influenza A H1 Not Detected (NOT DETECT); Influenza A H1-2009 Not Detected (NOT DETECT); Influenza A H3 Not Detected (NOT DETECT); Influenza B Not Detected (NOT DETECT); Mycoplasma Pneumoniae Not Detected (NOT DETECT); Parainfluenza Virus Type 1 Not Detected (NOT DETECT); Parainfluenza Virus Type 2 Not Detected (NOT DETECT); Parainfluenza Virus Type 3 Not Detected (NOT DETECT); Parainfluenza Virus Type 4 Not Detected (NOT DETECT); Respiratory Syncytial Virus A Not Detected (NOT DETECT); Respiratory Syncytial Virus B Not Detected (NOT DETECT); SARS-COV-2 Not Detected (NOT DETECT)
[2024-06-24 20:14] LABS: Thyroid Stimulating Hormone 0.92 uIU/mL (0.27-4.20); Vitamin B12 1277 pg/mL (232-1245)
[2024-06-24] MEDS: lisinopril 10 mg Tablet PO (20:16)
[2024-06-24] MEDS: sennosides-docusate Tablet 2 TAB PO (21:08)
[2024-06-24] MEDS: zolpidem 5 mg Tablet PO (21:08)
[2024-06-24] MEDS: sertraline 50 mg Tablet PO (21:08)
[2024-06-24] MEDS: enoxaparin 40 mg/0.4 mL Syringe SUBCUT (21:08)
[2024-06-24] MEDS: sodium chloride 0.9% 1,000 ML 75 ML IV (21:09)
[2024-06-25 00:18] VITALS: BP 157/83; PULSE 98; RESP 18; TEMP 36.7; O2SAT 97
--- NOTE | 2024-06-25 00:25 | PC.NURSE ---
PERSONAL BELONGINGS AT ADMISSION Clothing, shoes, cell phone, glasses, wedding ring, purse, reading glasses. 3 glaucoma eye drop bottles with pt. will send to pharmacy in the morning for scan barcode to administer tomorrow. wilde on person 3 $20, 2 $10, 3 $5, 8 $1 bills counted with pt and Jorge CONDE. credit cards- 2 [employer], [employer] card, [employer], and [employer] cards. Wilde and cards were locked in [employer] with pt permission, other items remain at bedside with the patient. encouraged pt to have take locked items home when he came back tomorrow.
[2024-06-25 03:20] LABS: Blood Urea Nitrogen 9 mg/dL (8-23); Calcium 8.5 mg/dL (8.5-10.5); Carbon Dioxide 24 mmol/L (22-29); Chloride 98 mmol/L (98-107); Creatinine Clr Calc Pharmacy 52.8144; Glucose 110 mg/dL (65-115); Magnesium 1.9 mg/dL (1.7-2.3); Osmolality Calculated 273 mOsm/kg (285-295); Sodium 132 mmol/L (136-145)
[2024-06-25 04:18] VITALS: BP 109/63; PULSE 57; RESP 17; TEMP 37; O2SAT 97
[2024-06-25] MEDS: potassium chloride ER 20 mEq Tablet 40 MEQ PO (05:21)
[2024-06-25 07:56] VITALS: BP 147/80; PULSE 60; RESP 16; TEMP 37; O2SAT 99
[2024-06-25 08:22] LABS: Anion Gap 15.7 (5-19); Blood Urea Nitrogen 9 mg/dL (8-23); Calcium 8.5 mg/dL (8.5-10.5); Carbon Dioxide 24 mmol/L (22-29); Chloride 98 mmol/L (98-107); Creatinine Clr Calc Pharmacy 52.6057; Glucose 101 mg/dL (65-115); Osmolality Calculated 277 mOsm/kg (285-295); Potassium 3.7 mmol/L (3.5-5.1); Sodium 134 mmol/L (136-145)
[2024-06-25] MEDS: sennosides-docusate Tablet 2 TAB PO (09:10)
[2024-06-25] MEDS: lisinopril 10 mg Tablet PO (09:10)
[2024-06-25] MEDS: metoprolol tartrate 25 mg Tablet PO (09:10)
[2024-06-25] MEDS: aspirin 81 mg Chew Tablet PO (09:10)
[2024-06-25] MEDS: ALPRAZolam 0.5 mg Tablet PO ×2 (09:13→15:03)
[2024-06-25 11:01] VITALS: BP 114/69; PULSE 59; RESP 16; TEMP 37; O2SAT 99
--- NOTE | 2024-06-25 11:17 | P.DS_ITS ---
Discharge Providers Date of Admission: 06/24/24 17:15 Date of Discharge: June 25, 2024 Attending Provider at Admission: Tamela Funez MD Attending Provider at Discharge: Tamela Funez MD Primary Care Provider: RYAN Atkinson Diagnoses at Discharge Discharge Diagnosis (1) Acute anxiety: Status: Acute (2) Constipation: Status: Acute Qualifiers: Constipation type: unspecified constipation type Qualified Code(s): K59.00 - Constipation, unspecified (3) Acute hyponatremia: Status: Acute Reason for Visit Reason for Visit: Weakness Hospital Course Hospital Course 74-year-old female who present to the hospital with chief complaint of generalized weakness and fatigue and worsening of anxiety, stating that she was tapered off sertraline which did not work in her favor, she has started sertraline back taking 50 mg, she is describing her anxiety symptoms as something crawling under her skin, sometimes she feels like screaming on top of her lungs, she is trying to avoid eating because of her nausea, she was diagnosed with hypovolemic hyponatremia in the ER, she was given IV fluids which improved her sodium, she does not have any focal deficits, requested psych consult to optimize her antidepressants. Her TSH and B12 is normal. I do believe most of her symptoms are related to uncontrolled anxiety, she seems to have component of generalized anxiety disorder. Physical Exam Narrative: Nonfocal neuroexam Resting comfortably Hemodynamically stable GCS 15 Abdomen soft S1, S2 Nonfocal neuroexam Discharge Data Studies Completed and Pending Completed Studies During Hospitalization Category Date Time Status XR chest 1V portable [id number] Stat Exams 06/24/24 14:11 Completed Pending at discharge Category Date Time Status Basic Metabolic Panel Q4H Lab 06/25/24 12:00 Ordered Radiology Impressions Chest X-Ray 06/24/24 14:11 IMPRESSION: No acute cardiopulmonary process. Laboratory Results WBC 7.73 10^3/uL (3.29-11.43) 06/24/24 15:15 RBC 4.56 10^6/uL (3.85-5.65) 06/24/24 15:15 Hgb 14.40 g/dL (11.27-16.99) 06/24/24 15:15 Hct 40.8 % (36-47) 06/24/24 15:15 MCV 89.5 fl (85-98) 06/24/24 15:15 MCH 31.6 pg (27-33) 06/24/24 15:15 MCHC 35.3 g/dL (30-55) 06/24/24 15:15 RDW 11.9 % (12.1-15.1) L 06/24/24 15:15 Plt Count 189 10^3/cmm (157-399) 06/24/24 15:15 MPV 10.2 fL (7.4-10.4) 06/24/24 15:15 Neut % (Auto) 81.7 % 06/24/24 15:15 Lymph % (Auto) 11.1 % 06/24/24 15:15 [place] % (Auto) 6.0 % 06/24/24 15:15 Eos % (Auto) 0.5 % 06/24/24 15:15 Baso % (Auto) 0.4 % 06/24/24 15:15 Neut # (Auto) 6.32 10^3/uL (1.8-7.7) 06/24/24 15:15 Lymph # (Auto) 0.9 10^3/uL (0.8-4.8) 06/24/24 15:15 [place] # (Auto) 0.5 10^3/uL (0.2-0.9) 06/24/24 15:15 Eos # (Auto) 0.0 10^3/uL (0.0-0.8) 06/24/24 15:15 Baso # (Auto) 0.0 10^3/uL (0.0-0.1) 06/24/24 15:15 Nucleated RBC % (auto) 0 % 06/24/24 15:15 Nucleated RBCs # 0.0 /100WBC 06/24/24 15:15 Sodium 134 mmol/L (136-145) L 06/25/24 07:50 Potassium 3.7 mmol/L (3.5-5.1) 06/25/24 07:50 Chloride 98 mmol/L (98-107) 06/25/24 07:50 Carbon Dioxide 24 mmol/L (22-29) 06/25/24 07:50 Anion Gap 15.7 (5-19) 06/25/24 07:50 BUN 9 mg/dL (8-23) 06/25/24 07:50 Creatinine 0.5 mg/dL (0.5-0.9) 06/25/24 07:50 GFR Calculation Not Reportable 06/25/24 07:50 Glucose 101 mg/dL (65-115) 06/25/24 07:50 Calculated Osmolality 277 mOsm/kg (285-295) L 06/25/24 07:50 Calcium 8.5 mg/dL (8.5-10.5) 06/25/24 07:50 Magnesium 1.9 mg/dL (1.7-2.3) 06/25/24 02:34 Total Bilirubin 0.7 mg/dL (0.15-1.2) 06/24/24 15:15 AST 23 U/L (0-32) 06/24/24 15:15 ALT 24 U/L (0-33) 06/24/24 15:15 Alkaline Phosphatase 53 U/L (35-105) 06/24/24 15:15 Total Protein 6.4 g/dL (6.6-8.7) L 06/24/24 15:15 Albumin 4.1 g/dL (3.5-5.2) 06/24/24 15:15 Globulin 2.3 g/dL (1.3-4.6) 06/24/24 15:15 Vitamin B12 1277 pg/mL (232-1245) H 06/24/24 18:15 TSH 0.92 uIU/mL (0.27-4.20) 06/24/24 18:15 Urine Color [place] (Yellow) A 06/24/24 16:00 Urine Appearance Clear (CLEAR) 06/24/24 16:00 Urine pH 8.0 (5-7) A 06/24/24 16:00 Ur Specific [place] 1.010 (1.005-1.030) 06/24/24 16:00 Urine Protein Negative (Negative) 06/24/24 16:00 Urine Glucose (UA) Negative (Normal) 06/24/24 16:00 Urine Ketones 1+ (Negative) H 06/24/24 16:00 Urine Blood Negative (Negative) 06/24/24 16:00 Urine Nitrate Negative (Negative) 06/24/24 16:00 Urine Bilirubin Negative (Negative) 06/24/24 16:00 Urine Urobilinogen 0.2 mg/dL (Negative) 06/24/24 16:00 Ur Leukocyte Esterase 1+ (Negative) A 06/24/24 16:00 Urine RBC 0-2 /hpf (0-2) 06/24/24 16:00 Urine WBC 0-5 /hpf (0-5) 06/24/24 16:00 Ur Squamous Epith Cells 0-5 /hpf (0-5) 06/24/24 16:00 Amorphous Sediment Not Reportable 06/24/24 16:00 Urine Bacteria None seen /hpf (NONE) 06/24/24 16:00 Hyaline Casts 0-4 /lpf H 06/24/24 16:00 Coronavirus 229E (PCR) Not detected (NOT DETECT) 06/24/24 16:42 SARS-CoV-2 (PCR) Not detected (NOT DETECT) 06/24/24 16:42 Vitals Last Vital Signs Temp 98.6 F 06/25/24 07:56 Pulse 60 06/25/24 07:56 Resp 16 06/25/24 07:56 BP 147/80 06/25/24 07:56 Pulse Ox 99 06/25/24 07:56 O2 Del Method Room Air 06/25/24 07:56 Discharge Plan Discharge Patient Disposition: Home Condition: Stable Prescriptions: New alprazolam 0.5 mg Tablet 0.5 mg PO TID PRN (Reason: Anxiety) Qty: 10 0RF lisinopril 10 mg Tablet 10 mg PO BID Qty: 60 4RF metoprolol tartrate 25 mg Tablet 25 mg PO BID@0900,2100 Qty: 60 3RF Continued loratadine [Allergy Relief (loratadine)] 10 mg tablet 10 mg PO DAILY aspirin 81 mg capsule 81 mg PO DAILY Estring 2 mg (7.5 mcg /24 hour) ring 1 vag ring VAGINAL .Q90D multivitamin Tablet 1 tab PO QPM latanoprost 0.005 % drops 1 drp ophthalmic (eye) QPM simvastatin 20 mg tablet 20 mg PO QPM timolol maleate 0.5 % drops 1 drp ophthalmic (eye) BID sertraline 50 mg Tablet 50 mg PO BEDTIME cranberry 500 mg Capsule 500 mg PO BID Rx Instructions: administer with meals dorzolamide 2 % drops 1 drp ophthalmic (eye) BID cholecalciferol (vitamin D3) [Vitamin D3] 50 mcg (2,000 unit) Tablet 50 mcg PO DAILY omega 3-vcv-ofb-fish oil [Fish Oil] 1,000 mg (120 mg-180 mg) Capsule 1 cap PO QPM Glucosamine Chondroitin 550-30-1 mg Capsule 1 cap PO BEDTIME ondansetron HCl 4 mg tablet 4 mg PO Q8H PRN (Reason: Nausea) lorazepam [Ativan] 2 mg tablet 1 - 2 mg PO Q8H PRN (Reason: anxiety) Qty: 14 0RF Discontinued benazepril-hydrochlorothiazide 20-25 mg tablet 1 tab PO DAILY Discharge Orders: Discharge Order (Routine); Ordered 06/25/24 Ordered By: Tamela Funez Referrals: porch, theraphy [Other] - 4-7 days ([email or web address]@ [email or web address]) Amira David FNP [Primary Care Provider] - 7-10 days Discharge Diet: Regular Discharge Activity: Increase activity as tolerated Patient Instructions: Opioid Safety Discharge Attestations Time Spent in Discharge Care*: less than 30 min Quality Metrics Clinical Quality Measures [ No reported AMI, CVA or VTE this stay] Coding Level of Care Code Acute Code for Chg Fwd Diagnoses Acute anxiety F41.9 Constipation K59.00 Constipation type: unspecified constipation type Acute hyponatremia E87.1
[2024-06-25 13:06] LABS: Blood Urea Nitrogen 8 mg/dL (8-23); Calcium 8.7 mg/dL (8.5-10.5); Carbon Dioxide 24 mmol/L (22-29); Chloride 100 mmol/L (98-107); Creatinine Clr Calc Pharmacy 52.6057; Glucose 107 mg/dL (65-115); Osmolality Calculated 279 mOsm/kg (285-295); Sodium 135 mmol/L (136-145)
--- NOTE | 2024-06-25 14:02 | P.NPUCON_ITS ---
Providers/Reason for Consult 2 Consulting Physican/Specialty*: Andrés Lunsford MD/Psychiatry Reason for Consult*: anxiety Attending Physician: Tamela Funez MD Primary Care Provider: RYAN Atkinson Psych Consult HPI History of Present Illness Nadya Daiz is a 74 year old female who was admitted to the medical floor in [facility] with increased complaints of generalized weakness and worsening anxiety. The patient had requested an evaluation from a psychiatrist regarding her problems with her medication. She reports that approximately 6 to 7 months ago she had been taking Zoloft 250 mg daily and reported that it had not been working as well to treat her anxiety and depression. She reports that she began to slowly taper her Zoloft over the course of several weeks and reported that she eventually started Effexor XR 37 mg daily for a few weeks. She had reported that the Effexor XR had given her more problems with particular worries about increased intraocular pressure that would be adverse for her given her history of glaucoma. She then stated having discontinued her Effexor and states for the past 2 weeks she has been on Zoloft 50 mg daily. She endorses that she has been overwhelmed by her anxiety and states that she has been unable to complete tasks at home because of her chronic worry. She reports that she has been unable to control her worry and states that she has been more depressed. She denies any suicidal ideation. She denies any history suggestive of hammad. She reports that she had needed something to help her manage her anxiety is she had felt paralyzed and had been unable to care for routine activities of daily living at home. She describes being very active but states that she had been prescribed Ativan in the emergency room and reported that it had not been helpful in the oral form. The patient had reported that the highest dose of Zoloft that she had previously been on was 150 mg daily. She had reported no side effects from Zoloft at 150 mg and stated that she had been using Zoloft for several years particularly at 150 mg daily for at least 1 year. She had endorsed a past history of panic attacks as well. No history of PTSD symptoms. In patient psychiatric history: None Outpatient psychiatric history: She had reported previously having received psychotherapy for a brief time after a difficult divorce but reports no routine psychotherapy but a history of having been diagnosed with panic attacks, generalized anxiety disorder, and major depressive disorder. Previous medications appear to be Zoloft and Effexor XR only. She has also had previous trials on Ativan as well. Substance abuse history: None reported Legal history: None Allergies: No known drug allergies Medical history/surgical history: as stated. Psychiatric medications: zoloft 50mg daily. Medications: as stated in med chart-reviewed Family psychiatric history: FÉLIX-mother, Social History: The patient was born and raised in [place] and reports that she had been raised in an intact family. She has 1 brother. 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 She had reported no history of trauma in her childhood. She reports having adult aged children and having grandchildren. She lives in [place] with her of 40 years. She reports that she is involved in many out reach activities. Meds Home Medications and Allergies Home Medications Medication Instructions Recorded Confirmed Last Taken Type estradiol 2 mg (7.5 mcg/24 hour) 1 vag ring vaginal .Q90D 02/02/20 06/24/24 05/24/24 History vaginal ring (Estring) aspirin 81 mg capsule 81 mg PO DAILY 10/24/21 06/24/24 06/24/24 10:00 History loratadine 10 mg tablet (Allergy 10 mg PO DAILY 10/24/21 06/24/24 06/24/24 History Relief (loratadine)) cholecalciferol (vitamin D3) 50 50 mcg PO DAILY 06/21/24 06/24/24 06/24/24 History mcg (2,000 unit) tablet (Vitamin D3) cranberry 500 mg capsule 500 mg PO BID 06/21/24 06/24/24 06/24/24 History dorzolamide 2 % eye drops 1 drp ophthalmic (eye) BID 06/21/24 06/24/24 06/24/24 History glucosamine sulf dipot 1 cap PO BEDTIME 06/21/24 06/24/24 06/23/24 History chlr,msm,chond 550 mg-C 30 mg-pablo 1 mg capsule (Glucosamine Chondroitin) latanoprost 0.005 % eye drops 1 drp ophthalmic (eye) QPM 06/21/24 06/24/24 06/23/24 History lorazepam 2 mg tablet (Ativan) 1 - 2 mg (0.5 - 1 x 2 mg) PO Q8H 06/21/24 06/24/2406/21/24 Rx PRN anxiety #14 tabs multivitamin 1 tab PO QPM 06/21/24 06/24/24 06/23/24 History omega 5-rvr-sed-fish oil 1,000 mg 1 cap PO QPM 06/21/24 06/24/24 06/24/24 History (120 mg-180 mg) capsule (Fish Oil) ondansetron HCl 4 mg tablet 4 mg PO Q8H PRN Nausea 06/21/24 06/24/24 06/23/24 History sertraline 50 mg tablet 50 mg PO BEDTIME 06/21/24 06/24/24 06/23/24 History simvastatin 20 mg tablet 20 mg PO QPM 06/21/24 06/24/24 06/23/24 History timolol maleate 0.5 % eye drops 1 drp ophthalmic (eye) BID 06/21/24 06/24/24 06/24/24 10:00 History alprazolam 0.5 mg tablet 0.5 mg PO TID PRN Anxiety #10 tabs 06/25/24 Unknown Rx lisinopril 10 mg tablet 10 mg PO BID #60 tabs 06/25/24 Unknown Rx metoprolol tartrate 25 mg tablet 25 mg PO BID@0900,2100 #60 tabs 06/25/24 Unknown Rx sertraline 25 mg tablet (Zoloft) 25 mg PO DAILY #14 tabs 06/25/24 Unknown Rx Allergies Allergy/AdvReac Type Severity Reaction Status Date / Time No Known Drug Allergies Allergy Unknown Verified 06/18/24 16:21 Current Medications Current Medications Generic Name Dose Route Start Last Admin Trade Name Heathq PRN Reason Stop Dose Admin Alprazolam 0.5 mg 06/24/24 19:37 06/25/24 09:13 Alprazolam 0.5 Mg Tablet PO 0.5 mg TID PRN Administration ANXIETY Aspirin 81 mg 06/25/24 09:00 06/25/24 09:10 Aspirin 81 Mg Chew Tablet PO 81 mg DAILY GADIEL Administration Enoxaparin Sodium 40 mg 06/24/24 21:00 06/24/24 21:08 Enoxaparin 40 Mg/0.4 Ml Syringe SUBCUT 40 mg Q24H GADIEL Administration Lisinopril 10 mg 06/24/24 19:15 06/25/24 09:10 Lisinopril 10 Mg Tablet PO 10 mg BID GADIEL Administration Metoprolol Tartrate 25 mg 06/25/24 09:00 06/25/24 09:10 Metoprolol Tartrate 25 Mg Tablet PO 25 mg BID@0900,2100 GADIEL Administration Senna/Docusate Sodium 2 tab 06/24/24 19:37 06/25/24 09:10 Sennosides-Docusate Tablet PO 2 tab BID GADIEL Administration Sertraline HCl 50 mg 06/24/24 21:00 06/24/24 21:08 Sertraline 50 Mg Tablet PO 50 mg BEDTIME GADIEL Administration Timolol Maleate 1 drop 06/25/24 09:00 06/25/24 09:13 Timolol 0.5% Op Soln 5 Ml Btl EYE-BOTH Not Given BID GADIEL Zolpidem Tartrate 5 mg 06/24/24 21:00 06/24/24 21:08 Zolpidem 5 Mg Tablet PO 5 mg BEDTIME GADIEL Administration PFSH NPU 2 PFSH: Medical History HTN (hypertension) Anxiety Social History (Updated 06/24/24 @ 19:07 by Tamela Funez MD) Smoking and tobacco/nicotine status: never used tobacco/nicotine Alcohol intake: never Substance/Drug Use: never Mental Status Exam 2 MSE Comments: Casually dressed white female who appeared her stated age who appeared in mild distress. She was alert and oriented person place time and situation. Her speech was normal in regards to rate rhythm and prosody. Her mood was described as anxious. Her affect was mood congruent and anxious as well. Her thought process was linear logical and goal-directed. Her thought content showed no evidence of homicidal or suicidal ideation. She did not appear to be responding to internal stimuli. There was no evidence of delusional thinking. Her recent and remote memory were grossly intact. Her attention span appeared good. Her insight is limited. Her judgment was fair. Her impulse control appeared adequate. Vitals/I&O/Wt Last Vital Signs Temp 98.6 F 06/25/24 11:01 Pulse 59 L 06/25/24 11:01 Resp 16 06/25/24 11:01 BP 114/69 06/25/24 11:01 Pulse Ox 99 06/25/24 11:01 O2 Del Method Room Air 06/25/24 11:01 06/24/24 06/25/24 06/25/24 22:59 06:59 14:59 Intake Total 1480 / 1480 860 / 2340 540 / 540 Balance 1480 / 1480 860 / 2340 540 / 540 Weight last 48 hrs Weight 65.408 kg Weight 65.952 kg Weight 62.596 kg Data NPU 06/24/24 15:15 06/25/24 12:20 A&P Assessment and plan (1) Major depressive disorder, recurrent episode: (2) Generalized anxiety disorder: (3) Panic attacks: Plan 74-year-old female who presents with a history of major depressive disorder, generalized anxiety disorder and panic attacks. She would likely benefit from psychiatric management of her medication regimen. She continues to report feeling overwhelmed by her anxiety and I had recommended the patient to receive cognitive behavioral therapy including providing a name of someone locally that did provide this. I recommended titrating her Zoloft and approached her with a protocol of how to do so this. Recommendation includes increasing Zoloft to 75 mg daily for the next 4 days followed by an increase to 100 mg for another 4 days followed by an increased in Zoloft 225 mg over the next 4 days followed by an increase in Zoloft 250 mg for the next 4 days followed by an increase in Zoloft 275 mg for 4 days followed by an increase in Zoloft to 200 mg afterwards. It is highly likely the patient will tolerate Zoloft at the higher dose as he she had been successfully prescribed this medication for years at 150 mg. I recommended the patient to take Xanax as needed up to twice a day to help her with tolerated the changes in medication as she reported feeling overwhelmed. The promotion writer of this note had sent 14 pills of 25 mg of Zoloft to her outpatient pharmacy with the plan for the patient to use her remaining tablets of 100 mg to follow this protocol on an outpatient basis. Referral for medication management to [facility] is also recommended. Attestations NPU 2 Medical Necessity Statement*: NA Coding Level of Care Code Acute Code for Chg Fwd Diagnoses Major depressive disorder, recurrent episode F33.9 Generalized anxiety disorder F41.1 Panic attacks F41.0
--- NOTE | 2024-06-25 15:39 | PC.NURSE ---
Discharge Note Patient discharged to home via wheelchair accompanied by spouse. 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 Mobile pharmacy medications and/or prescriptions provided. Belongings/home medications returned.
--- NOTE | 2024-06-25 15:41 | PC.NURSE ---
patient belongings sent with pt and Clothing, shoes, cell phone, glasses, wedding ring, purse, reading glasses. 3 glaucoma eye drops with pt. Wilde and credit cards were sent with.
== END 2024-06-25 15:40 | disposition home or self-care (01) | DRG 641 ==
LOC: ER 17:44 → MEDSURG 18:17
PROVIDERS: Emergency Medicine; Admitting Provider Internal Medicine; Emergency Provider Emergency Medicine; PCP Nurse Practitioner Family; Visit Provider Internal Medicine
DX: E87.1 Hypo-osmolality and hyponatremia (principal); F33.9 Major depressive disorder, recurrent, unspecified; I10 Essential (primary) hypertension; F41.1 Generalized anxiety disorder; H40.9 Unspecified glaucoma; E86.0 Dehydration; K59.00 Constipation, unspecified; F41.0 Panic disorder [episodic paroxysmal anxiety]; Z79.890 Hormone replacement therapy; Z79.82 Long term (current) use of aspirin
CPT/HCPCS: 36415; 71045; 80048; 80053; 81003; 81015; 82607; 83735; 84443; 85025; 87635; 93005; 96361; 96372; 96374; 97112; 97161; 99285; J1650; J2060; J7030

== ENCOUNTER 2024-06-27 18:11 | Emergency (ER) | payer MEDICARE, SELFPAY ==
--- NOTE | 2024-06-27 18:18 | ECG_ITS ---
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 Measurements Intervals [place] Rate: 66 P: 75 [place]: 147 QRS: -9 QRSD: 80 T: 71 QT: 372 QTc: 391 Interpretive Statements SINUS RHYTHM POSSIBLE RIGHT VENTRICULAR CONDUCTION DELAY [RSR (QR) IN V1/V2] SEPTAL MYOCARDIAL INFARCTION , PROBABLY OLD [40+ ms Q WAVE IN V1/V2] INTERPRETATION BASED ON A DEFAULT AGE OF 40 YEARS Compared to ECG 06/24/2024 15:13:59 No significant changes Electronically Signed On 06-29-2024 17:07:04 CDT by Shay De La Cruz M.D. [email or web address]
[2024-06-27 18:25] VITALS: BP 156/79; PULSE 69; RESP 14; TEMP 36.3; O2SAT 99; BMI 26.0
--- NOTE | 2024-06-27 20:16 | PC.NURSE ---
patient requests blood pressure check in triage. 182/90. patient unhappy due to wait time. i have relayed to her an apology and that this rn has no way of providing a wait time, working as fast as possible to get patients back. patient and verbalize understanding.
== END 2024-06-27 20:18 | disposition left against medical advice (07) ==
PROVIDERS: Emergency Provider Family Medicine; PCP Nurse Practitioner Family
DX: Z53.21 Procedure and treatment not carried out due to patient leaving prior to being seen by health care provider (principal)
CPT/HCPCS: 93005

== ENCOUNTER 2024-07-08 10:48 | Emergency (ER) | payer MEDICARE, SELFPAY ==
[2024-07-08] VITALS (11 sets, daily range): BP systolic 171–219; BP diastolic 82–110; PULSE 65–79; RESP 14–21; TEMP 36.6; O2SAT 93–99; BMI 25.4
--- NOTE | 2024-07-08 11:49 | XRR_ITS ---
PROCEDURE INFORMATION: Exam: XR Abdomen Exam date and time: 07/08/2024 12:02 PM Age: 74 years old Clinical indication: Abdominal pain; Acute TECHNIQUE: Imaging protocol: Radiologic exam of the abdomen. Views: Frontal supine view of the abdomen. 1 View. COMPARISON: CR (ABDOMEN, ) 06/18/2024 4:47 PM FINDINGS: Lungs: Slight probable atelectasis and/or fibrosis visualized portions lung bases bilaterally. Diaphragm: Mild elevation right hemidiaphragm partially included. Uppermost dome right hemidiaphragm not included, indeterminate. Gastrointestinal tract: Mild scattered bowel gas stomach, small bowel, colon. Appearance of wall thickening of bowel right abdomen, possibly colon, may due to contents or fluid within bowel. Vasculature: Evidence pelvic phleboliths bilaterally, similar to 06/18/2024. Bones/joints: Curvature, degenerative changes spine. Subchondral cystic changes outer acetabular regions bilaterally. Soft tissues: Rib cartilage calcifications. No obvious suspicious abnormal mass effect seen. XR/XR KUB [id number] IMPRESSION: Nonspecific bowel pattern, nonobstructive.
--- NOTE | 2024-07-08 11:55 | CTR_ITS ---
PROCEDURE INFORMATION: Exam: CT Chest Without Contrast; Diagnostic Exam date and time: 07/08/2024 1:24 PM Age: 74 years old Clinical indication: Abdominal pain; Epigastric; Other: Difficult swallowing; Additional info: Difficult swallowing, epigastric pain TECHNIQUE: Imaging protocol: Diagnostic computed tomography of the chest without contrast. Radiation optimization: All CT scans at this facility use at least one of these dose optimization techniques: automated exposure control; mA and/or kV adjustment per patient size (includes targeted exams where dose is matched to clinical indication); or iterative reconstruction. COMPARISON: CR (CHEST, ) 06/24/2024 2:32 PM RADIATION DOSE METRICS: Total DLP (mGy-cm): 556.92 FINDINGS: Lungs: There is an old calcified granuloma of the right apex. The lungs are otherwise clear. Pleural spaces: Unremarkable. No pneumothorax. No pleural effusion. Heart: Unremarkable. No cardiomegaly. No pericardial effusion. Coronary arteries: There is calcified coronary artery disease. Lymph nodes: Unremarkable. No enlarged lymph nodes. Vasculature: Unremarkable. No aortic aneurysm. Bones/joints: Unremarkable. No acute fracture. Soft tissues: Prominent glandular breast tissue for age. There is a solid appearing right breast mass with several calcifications measuring up to 4.6 cm. Consider further nonemergent workup and comparison with prior breast imaging. PROCEDURE INFORMATION: Exam: CT Abdomen And Pelvis Without Contrast Exam date and time: 07/08/2024 1:24 PM Age: 74 years old Clinical indication: Abdominal pain; Epigastric; Other: Difficult swallowing; Additional info: Difficult swallowing, epigastric pain TECHNIQUE: Imaging protocol: Computed tomography of the abdomen and pelvis without contrast. Radiation optimization: All CT scans at this facility use at least one of these dose optimization techniques: automated exposure control; mA and/or kV adjustment per patient size (includes targeted exams where dose is matched to clinical indication); or iterative reconstruction. COMPARISON: CR (ABDOMEN, ) 07/08/2024 12:02 PM RADIATION DOSE METRICS: Total DLP (mGy-cm): 556.92 FINDINGS: Tubes, catheters and devices: There is a pessary device present. Liver: There are several hypodense lesions in both lobes of the liver which are too small to characterize. The largest lesion is in the posterior right lobe of the liver measuring about 7 mm. Gallbladder and biliary ducts: The gallbladder is unremarkable with no calcified stones visualized and no strandy inflammatory changes surrounding the gallbladder. Pancreas: Normal. No ductal dilation. Spleen: The spleen is normal in appearance. Adrenal glands: The adrenal glands are normal in appearance. Kidneys and ureters: The kidneys are normal in appearance. No evidence of hydronephrosis or hydroureter. No nephroureteral calculi are identified. Stomach and bowel: The small bowel loops are not thickened and are nondilated. There is colonic diverticulosis but no evidence of diverticulitis. Appendix: The appendix is normal in appearance. No evidence of appendicitis. Intraperitoneal space: Unremarkable. No free air. No significant fluid collection. Vasculature: Unremarkable. No abdominal aortic aneurysm. Lymph nodes: Unremarkable. No enlarged lymph nodes. Urinary bladder: The urinary bladder is normal in appearance. Reproductive: Unremarkable as visualized. Bones/joints: There are chronic degenerative changes throughout the lumbar spine. There is a grade 1 anterolisthesis of L4 over L5. There are mild age-indeterminate compression fracture deformities at L1 and L2. Soft tissues: Unremarkable. CT/[place] [id number] IMPRESSION: 1. Calcified coronary artery disease. 2. No CT evidence of acute chest pathology. 3. Prominent glandular breast tissue for age bilaterally. There is a solid-appearing 4.6 cm right breast mass. Consider additional nonemergent workup. IMPRESSION: 1. Several hypodense liver lesions, too small to characterize but possibly representing cysts. 2. Diverticulosis but no evidence of diverticulitis. 3. No CT evidence of acute intra-abdominal pathology.
--- NOTE | 2024-07-08 11:55 | CTR_ITS ---
PROCEDURE INFORMATION: Exam: CT Neck With Contrast Exam date and time: 07/08/2024 1:29 PM Age: 74 years old Clinical indication: Condition or disease; Other: Abnormal mass 04/16; Additional info: Follow up noted abnormal mass 04/16 TECHNIQUE: Imaging protocol: Computed tomography of the neck with contrast. Radiation optimization: All CT scans at this facility use at least one of these dose optimization techniques: automated exposure control; mA and/or kV adjustment per patient size (includes targeted exams where dose is matched to clinical indication); or iterative reconstruction. Contrast material: [id number]; Contrast volume: 80 ml; Contrast route: INTRAVENOUS (IV); COMPARISON: CT neck w con* [id number] 04/04/2024 5:38 PM RADIATION DOSE METRICS: Total DLP (mGy-cm): 315.84 FINDINGS: Salivary glands: Normal-size of the parotid and submandibular glands. The previously described enhancing lesion at the inferior tail of the right pancreas has significantly decreased in size, now measuring 12 x 9 x 7 mm(AP x CC x TV)., previously 17 x 13 x 7 mm(AP x CC x TV).. Additionally, does not appear homogeneously solid on this study. Apparent hypodense center. Pharynx: Unremarkable. No significant tonsillar enlargement. Prevertebral and retropharyngeal spaces: Unremarkable. Larynx: Unremarkable. Epiglottis is normal. Thyroid: Normal. No enlarged or calcified nodules. Trachea: Visualized trachea is unremarkable. Lungs: Unremarkable as visualized. Lymph nodes: Unremarkable. No lymphadenopathy. Bones/joints: No acute fracture or malalignment. [id number] degenerative change in the cervical spine, with grade 1 anterolisthesis at C4-C5. Remote mild superior endplate compression fractures in the upper thoracic spine, unchanged. Soft tissues: Unremarkable. No significant soft tissue swelling. CT/CT neck w con* [id number] IMPRESSION: The previously described enhancing lesion at the inferior tail of the right pancreas has significantly decreased in size, now measuring 12 x 9 x 7 mm(AP x CC x TV)., previously 17 x 13 x 7 mm(AP x CC x TV). Consistent with benign entity. Additionally, does not appear homogeneously solid on this study. Apparent hypodense center. May represent a lymph node. No new or enlarging salivary gland or mucosal lesion identified.
[2024-07-08] MEDS: lidocaine 2% viscous 15 ML, aluminum-mag hydrox-simethicon 30 ML, sucralfate oral liq 1 GM PO (12:45)
--- NOTE | 2024-07-08 13:05 | ED_ITS ---
HPI - Abdominal Pain 2 General: Chief Complaint: Abdominal Pain Stated Complaint: Stomach pain Time Seen by Provider: 07/08/24 11:28 History of Present Illness: This patient is a 74 year old presenting with epigastric pain, difficulty eating, weight loss and occasional shortness of breath. She reports that she had a change in her BP medicine about a month ago due to her BP running high - and she had her dose of HCTZ increased by her PCP. She then ended up in the hospital with low sodium and dehydration. The HCTZ was stopped and she was continued on her lisinopril - metoprolol was added. Over the past month she has also been having abdominal pain - epigastric - constant - non radiating. She says that nothing makes it better or worse and it is constant. She sometimes feels short of breath due to the pain. She feels acidy . She can't eat much because it feels like the food doesn't go through. She has been in and out of her PCP office and the ED - she is on pantoprozole, and has been started on carafate. On her hospital admission she was seen by psychiatry and diagnosed with anxiety. She does say that she had weaned herself off her zoloft - but it didn't go well so she has been back on it - gradually titrating up to her prior dose of 150 mg. She did have some anxiety with restarting that but those symptoms are better now. She also was just started back on her seroquel to help her sleep. She denies any surgeries other than two c sections. She is scheduled for an outpatient US and endoscopy - but doesn't think she can stand this pain until those get done. Related Data Home Medications Medication Instructions Recorded Confirmed estradiol 2 mg (7.5 mcg/24 hour) 1 vag ring vaginal .Q90D 02/02/20 06/24/24 vaginal ring (Estring) aspirin 81 mg capsule 81 mg PO DAILY 10/24/21 06/24/24 loratadine 10 mg tablet (Allergy 10 mg PO DAILY 10/24/21 06/24/24 Relief (loratadine)) cholecalciferol (vitamin D3) 50 50 mcg PO DAILY 06/21/24 06/24/24 mcg (2,000 unit) tablet (Vitamin D3) cranberry 500 mg capsule 500 mg PO BID 06/21/24 06/24/24 dorzolamide 2 % eye drops 1 drp ophthalmic (eye) BID 06/21/24 06/24/24 glucosamine sulf dipot 1 cap PO BEDTIME 06/21/24 06/24/24 chlr,msm,chond 550 mg-C 30 mg-pablo 1 mg capsule (Glucosamine Chondroitin) latanoprost 0.005 % eye drops 1 drp ophthalmic (eye) QPM 06/21/24 06/24/24 multivitamin 1 tab PO QPM 06/21/24 06/24/24 omega 3-hlf-hfm-fish oil 1,000 mg 1 cap PO QPM 06/21/24 06/24/24 (120 mg-180 mg) capsule (Fish Oil) ondansetron HCl 4 mg tablet 4 mg PO Q8H PRN Nausea 06/21/24 06/24/24 sertraline 50 mg tablet 50 mg PO BEDTIME 06/21/24 06/24/24 simvastatin 20 mg tablet 20 mg PO QPM 06/21/24 06/24/24 timolol maleate 0.5 % eye drops 1 drp ophthalmic (eye) BID 06/21/24 06/24/24 Previous Rx's Medication Instructions Recorded lorazepam 2 mg tablet (Ativan) 1 - 2 mg (0.5 - 1 x 2 mg) PO Q8H 06/21/24 PRN anxiety #14 tabs alprazolam 0.5 mg tablet 0.5 mg PO TID PRN Anxiety #10 tabs 06/25/24 lisinopril 10 mg tablet 10 mg PO BID #60 tabs 06/25/24 metoprolol tartrate 25 mg tablet 25 mg PO BID@0900,2100 #60 tabs 06/25/24 sertraline 25 mg tablet (Zoloft) 25 mg PO DAILY #14 tabs 06/25/24 Allergies Allergy/AdvReac Type Severity Reaction Status Date / Time No Known Drug Allergies Allergy Unknown Verified 06/18/24 16:21 PFSH ED 2 PFSH: Medical History HTN (hypertension) Anxiety Social History (Updated 06/24/24 @ 19:07 by Tamela Funez MD) Smoking and tobacco/nicotine status: never used tobacco/nicotine Alcohol intake: never Substance/Drug Use: never Physical Exam 2 Const: COMMON NORMALS: no acute distress, patient oriented x3, no limitations and alert GENERAL APPEARANCE: cooperative and comfortable HENMT: HEAD & SCALP: normal to inspection FACE & SINUS: normal facial exam Eye: GENERAL EYE: appearance normal, both eyes and all related structures Neck/C-Spine: COMMON NORMALS: supple, no meningeal signs and no JVD Chest: COMMONS NORMALS: normal inspection of the chest Resp: COMMON NORMALS: normal respiratory effort, No use of accessory muscles and clear to auscultation bilaterally AUSCULTATION: clear to auscultation bilaterally Cardio: COMMON NORMALS: no JVD, regular rate, regular rhythm and No murmurs present (Cardio) RATE: regular rate RHYTHM: regular rhythm GI: COMMON NORMALS: Normal to inspection, nondistended, normoactive bowel sounds present, Soft to palpation, non-tender and No hepatosplenomegaly present INSPECTION: Yes normal to inspection AUSCULTATION: Yes normoactive bowel sounds PALPATION: Yes Soft to palpation, Yes Tenderness to palpation present (GI) (mild) Details: LUQ and RUQ and Yes No hepatosplenomegaly present Back/Pelvis: COMMON NORMALS: thoracic and lumbar spine normal to inspection Extremity: COMMON NORMALS: normal to inspection Neuro: COMMON NORMALS: patient oriented x3, moves all extremities, no focal motor deficits and no sensory deficits noted SENSORIUM/ORIENTATION: Yes alert MENINGEAL SIGNS: Yes no meningeal signs Psych: COMMON NORMALS: mental status grossly normal, cooperative and normal affect Skin: COMMON NORMALS: no rashes or lesions noted and turgor normal GENERAL SKIN EXAM: no rashes or lesions noted and turgor normal Course 2 Vital Signs: Vital signs: Vital Signs Temperature 97.9 F 07/08/24 10:56 Pulse Rate 74 07/08/24 17:20 Respiratory Rate 21 H 07/08/24 16:11 Blood Pressure 171/105 07/08/24 17:20 Pulse Oximetry 93 07/08/24 17:20 Oxygen Delivery Me thod Room Air 07/08/24 10:56 MDM - Abdominal Pain Medical Decision Making Patient also was seen with constipation at some point over the past month - took some laxatives and feels like that is resolved. She has not been having much in the way of BM, but notes that she isn't eating much. Today her KUB does not show constipation. Her labs are pending as she has proved to be a difficult stick. I reviewed her prior charts and noted that she had a CT of her neck in March that showed a concerning mass of the parotid. I do not see that this was followed up - although her PCP is Freddy Hutchison so I can't see notes. Given her sensation of having trouble getting food to pass, and her shortness of breath - this possibility of malignancy is concerning and I have ordered CT neck, chest, abd, pelvis. CTs were reassuring - delay in reading due to transmission to [employer]. CT did have some concern about a calcified area in one of her breasts - and she tells me that she has been told that before and has her regular mammograms. We had a long discussion about the connections between anxiety and physical symptoms such as abdominal pain and ulcers. We discussed the time for medications to have an effect. She has only been back on her prior dose of Zoloft for 1 day, and only started pantoprazole a week ago. She has follow up with Amira and Dr. Holloway - as well as a counselor. We also discussed dietary choices, stress management. Lab Data 07/08/24 13:16 07/08/24 13:16 Labs/Radiology: Radiology Impressions KUB X-Ray 07/08/24 11:49 IMPRESSION: Nonspecific bowel pattern, nonobstructive. Chest/Abdomen/Pelvis CT 07/08/24 11:55 IMPRESSION: 1. Calcified coronary artery disease. 2. No CT evidence of acute chest pathology. 3. Prominent glandular breast tissue for age bilaterally. There is a solid-appearing 4.6 cm right breast mass. Consider additional nonemergent workup. IMPRESSION: 1. Several hypodense liver lesions, too small to characterize but possibly representing cysts. 2. Diverticulosis but no evidence of diverticulitis. 3. No CT evidence of acute intra-abdominal pathology. Neck CT 07/08/24 11:55 IMPRESSION: The previously described enhancing lesion at the inferior tail of the right pancreas has significantly decreased in size, now measuring 12 x 9 x 7 mm(AP x CC x TV)., previously 17 x 13 x 7 mm(AP x CC x TV). Consistent with benign entity. Additionally, does not appear homogeneously solid on this study. Apparent hypodense center. May represent a lymph node. No new or enlarging salivary gland or mucosal lesion identified. Laboratory Results WBC 6.67 10^3/uL (3.29-11.43) 07/08/24 13:16 RBC 4.78 10^6/uL (3.85-5.65) 07/08/24 13:16 Hgb 14.90 g/dL (11.27-16.99) 07/08/24 13:16 Hct 42.0 % (36-47) 07/08/24 13:16 MCV 87.9 fl (85-98) 07/08/24 13:16 MCH 31.2 pg (27-33) 07/08/24 13:16 MCHC 35.5 g/dL (30-55) 07/08/24 13:16 RDW 12.0 % (12.1-15.1) L 07/08/24 13:16 Plt Count 185 10^3/cmm (157-399) 07/08/24 13:16 MPV 9.5 fL (7.4-10.4) 07/08/24 13:16 Neut % (Auto) 76.5 % 07/08/24 13:16 Lymph % (Auto) 15.3 % 07/08/24 13:16 Roberts % (Auto) 5.8 % 07/08/24 13:16 Eos % (Auto) 1.6 % 07/08/24 13:16 Baso % (Auto) 0.4 % 07/08/24 13:16 Neut # (Auto) 5.09 10^3/uL (1.8-7.7) 07/08/24 13:16 Lymph # (Auto) 1.0 10^3/uL (0.8-4.8) 07/08/24 13:16 Roberts # (Auto) 0.4 10^3/uL (0.2-0.9) 07/08/24 13:16 Eos # (Auto) 0.1 10^3/uL (0.0-0.8) 07/08/24 13:16 Baso # (Auto) 0.0 10^3/uL (0.0-0.1) 07/08/24 13:16 Nucleated RBC % (auto) 0 % 07/08/24 13:16 Nucleated RBCs # 0.0 /100WBC 07/08/24 13:16 Sodium 135 mmol/L (136-145) L 07/08/24 13:16 Potassium 3.2 mmol/L (3.5-5.1) L 07/08/24 13:16 Chloride 97 mmol/L (98-107) L 07/08/24 13:16 Carbon Dioxide 26 mmol/L (22-29) 07/08/24 13:16 Anion Gap 15.2 (5-19) 07/08/24 13:16 BUN 8 mg/dL (8-23) 07/08/24 13:16 Creatinine 0.6 mg/dL (0.5-0.9) 07/08/24 13:16 GFR Calculation Not Reportable 07/08/24 13:16 Glucose 106 mg/dL (65-115) 07/08/24 13:16 Calculated Osmolality 279 mOsm/kg (285-295) L 07/08/24 13:16 Calcium 9.2 mg/dL (8.5-10.5) 07/08/24 13:16 Total Bilirubin 0.6 mg/dL (0.15-1.2) 07/08/24 13:16 AST 18 U/L (0-32) 07/08/24 13:16 ALT 17 U/L (0-33) 07/08/24 13:16 Alkaline Phosphatase 54 U/L (35-105) 07/08/24 13:16 Total Protein 7.0 g/dL (6.6-8.7) 07/08/24 13:16 Albumin 4.7 g/dL (3.5-5.2) 07/08/24 13:16 Globulin 2.3 g/dL (1.3-4.6) 07/08/24 13:16 Lipase 48 U/L (13-60) 07/08/24 13:16 Urine Color Yellow (Yellow) 07/08/24 11:59 Urine Appearance Clear (CLEAR) 07/08/24 11:59 Urine pH 7 (5-7) 07/08/24 11:59 Ur Specific Sanders 1.010 (1.005-1.030) 07/08/24 11:59 Urine Protein Neg (Negative) 07/08/24 11:59 Urine Glucose (UA) Norm (Normal) 07/08/24 11:59 Urine Ketones Negative (Negative) 07/08/24 11:59 Urine Blood Neg (Negative) 07/08/24 11:59 Urine Nitrate Negative (Negative) 07/08/24 11:59 Urine Bilirubin Neg (Negative) 07/08/24 11:59 Urine Urobilinogen Norm mg/dL (Negative) 07/08/24 11:59 Ur Leukocyte Esterase 1+ (Negative) H 07/08/24 11:59 Urine RBC None /hpf (0-2) 07/08/24 11:59 Urine WBC 5-10 /hpf (0-5) H 07/08/24 11:59 Ur Squamous Epith Cells 0-4 /hpf (0-5) H 07/08/24 11:59 Amorphous Sediment Not Reportable 07/08/24 11:59 Urine Bacteria None /hpf (NONE) 07/08/24 11:59 All radiology interpretation(s) finalized by discharge Discharge Plan Discharge Patient Disposition: Home Clinical Impression: Abdominal pain, epigastric, Generalized anxiety disorder, Gastritis Condition: Stable Prescriptions: No Action loratadine [Allergy Relief (loratadine)] 10 mg tablet 10 mg PO DAILY aspirin 81 mg capsule 81 mg PO DAILY Estring 2 mg (7.5 mcg /24 hour) ring 1 vag ring VAGINAL .Q90D multivitamin Tablet 1 tab PO QPM latanoprost 0.005 % drops 1 drp ophthalmic (eye) QPM simvastatin 20 mg tablet 20 mg PO QPM timolol maleate 0.5 % drops 1 drp ophthalmic (eye) BID sertraline 50 mg Tablet 50 mg PO BEDTIME cranberry 500 mg Capsule 500 mg PO BID Rx Instructions: administer with meals dorzolamide 2 % drops 1 drp ophthalmic (eye) BID cholecalciferol (vitamin D3) [Vitamin D3] 50 mcg (2,000 unit) Tablet 50 mcg PO DAILY omega 0-sqj-dcm-fish oil [Fish Oil] 1,000 mg (120 mg-180 mg) Capsule 1 cap PO QPM Glucosamine Chondroitin 550-30-1 mg Capsule 1 cap PO BEDTIME ondansetron HCl 4 mg tablet 4 mg PO Q8H PRN (Reason: Nausea) lorazepam [Ativan] 2 mg tablet 1 - 2 mg PO Q8H PRN (Reason: anxiety) Qty: 14 0RF alprazolam 0.5 mg Tablet 0.5 mg PO TID PRN (Reason: Anxiety) Qty: 10 0RF lisinopril 10 mg Tablet 10 mg PO BID Qty: 60 4RF metoprolol tartrate 25 mg Tablet 25 mg PO BID@0900,2100 Qty: 60 3RF Zoloft 25 mg tablet 25 mg PO DAILY Qty: 14 0RF Discharge Orders: Discharge ED (Routine); Ordered 07/08/24 Ordered By: Jackie Sue Referrals: Amira David FNP [Primary Care Provider] - Patient Instructions: Abdominal Pain (ED), Opioid Safety, Pain Management Activity Restrictions/Additional Instructions: You can add Pepcid 40 mg (two over the counter tablets) at bedtime. Continue your other medications. Follow up as scheduled. Eat small amounts of bland foods - broths - until feeling better. Coding Level of Care Code ED Vice President Digital Strategist for Rakesh Brink
[2024-07-08 13:16] LABS: Add Urine Culture? No; Add Urine Microscopic? YES; Bilirubin Urine Neg (Negative); Blood Urine Neg (Negative); Glucose Urine UA Norm (Normal); Ketones Urine Negative (Negative); Leukocyte Esterase Urine 1+ (Negative); Nitrate Urine Negative (Negative); Protein Urine Neg (Negative); Squamous Epithelial Cell Urine 0-4 /hpf (0-5); Urine Appearance Clear (CLEAR); Urine Color Yellow (Yellow); Urobilinogen Urine Norm (Negative); pH Urine 7 (5-7)
[2024-07-08 13:30] LABS: Basophils % 0.4 %; Eosinophils # 0.1 10^3/uL (0.0-0.8); Eosinophils % 1.6 %; Lymphocytes % 15.3 %; Mean Corpuscular HGB Conc 35.5 g/dL (30-55); Mean Corpuscular Hemoglobin 31.2 pg (27-33); Mean Corpuscular Volume 87.9 fl (85-98); Mean Platelet Volume 9.5 fL (7.4-10.4); Monocytes # 0.4 10^3/uL (0.2-0.9); Monocytes % 5.8 %; Neutrophils # 5.09 10^3/uL (1.8-7.7); Neutrophils % 76.5 %; Nucleated Red Blood Cells % 0 %; Platelet Count 185 10^3/cmm (157-399); Red Blood Count 4.78 10^6/uL (3.85-5.65); White Blood Count 6.67 10^3/uL (3.29-11.43)
[2024-07-08] MEDS: iohexol 350 mg/mL 500 mL Btl (per mL) IV (13:30)
[2024-07-08 13:55] LABS: Alanine Aminotransferase 17 U/L (0-33); Albumin Level 4.7 g/dL (3.5-5.2); Alkaline Phosphatase 54 U/L (35-105); Anion Gap 15.2 (5-19); Aspartate Amino Transferase 18 U/L (0-32); Blood Urea Nitrogen 8 mg/dL (8-23); Calcium 9.2 mg/dL (8.5-10.5); Carbon Dioxide 26 mmol/L (22-29); Chloride 97 mmol/L (98-107); Creatinine Clr Calc Pharmacy 51.0046; Globulin 2.3 g/dL (1.3-4.6); Glucose 106 mg/dL (65-115); Lipase 48 U/L (13-60); Osmolality Calculated 279 mOsm/kg (285-295); Potassium 3.2 mmol/L (3.5-5.1); Sodium 135 mmol/L (136-145); Total Bilirubin 0.6 mg/dL (0.15-1.2)
[2024-07-08] MEDS: morphine 4 mg/mL SDV 1 mL IVP (16:11)
== END 2024-07-08 17:22 | disposition home or self-care (01) ==
PROVIDERS: Emergency Provider Emergency Medicine; PCP Nurse Practitioner Family
DX: R10.13 Epigastric pain (principal); F41.1 Generalized anxiety disorder; K29.70 Gastritis, unspecified, without bleeding; Z79.82 Long term (current) use of aspirin; I10 Essential (primary) hypertension
CPT/HCPCS: 70491; 71250; 74018; 74176; 80053; 81001; 83690; 85025; 96374; 99285; J2270

== ENCOUNTER 2024-08-31 14:53 | Outpatient (CLI) | payer MEDICARE, SELFPAY ==
--- NOTE | 2024-08-31 14:56 | MM_ITS ---
WS: [id number] BILATERAL 3D TOMOSYNTHESIS DIGITAL SCREENING MAMMOGRAM WITH CAD CLINICAL INFORMATION: SCREENING HISTORY: Screening mammogram. No current complaints. COMPARISON: 2022 TECHNIQUE: Bilateral CC and MLO. FINDINGS: The breast are composed of extremely dense tissue, which can limit the detection of small underlying mass lesions. No suspicious focal mass, asymmetry, calcifications, or architectural distortion. No ev idence of malignancy. Punctate and lucent centered calcifications. Biopsy marker RIGHT breast. Christiano ectural distortion central RIGHT breast is stable MM/MM [facility] tomosynthesis [id number] IMPRESSION: DENSITY: The breasts are extremely dense, which lowers the sensitivity of mammo graphy. BI-RADS: 2 - Benign FOLLOW UP: 1 Year Follow-up Recommend return to annual screening mammography.
== END 2024-08-31 14:54 | disposition home or self-care (01) ==
LOC: RAD 14:54
PROVIDERS: PCP Nurse Practitioner Family; Visit Provider Nurse Practitioner Family
DX: Z12.31 Encounter for screening mammogram for malignant neoplasm of breast (principal); R92.333 Mammographic heterogeneous density, bilateral breasts; R92.1 Mammographic calcification found on diagnostic imaging of breast
CPT/HCPCS: 77063; 77067

== ENCOUNTER 2024-09-04 17:54 | Emergency (ER) | payer MEDICARE, SELFPAY ==
[2024-09-04 18:07] VITALS: BP 115/78; PULSE 75; RESP 20; TEMP 36.4; O2SAT 97; BMI 24.9
--- NOTE | 2024-09-04 18:35 | XRR_ITS ---
PROCEDURE INFORMATION: Exam: XR Left Femur Exam date and time: 09/04/2024 7:49 PM Age: 74 years old Clinical indication: Pain and injury or trauma; Other: Kicked by a horse; Blunt trauma; Thigh or upper leg; Left TECHNIQUE: Imaging protocol: Radiologic exam of the left femur. Views: 2 views. COMPARISON: [place] [id number] 07/08/2024 1:24 PM FINDINGS: Bones/joints: Unremarkable. No acute fracture. Soft tissues: Meniscal calcifications in the knee. Edema in the lateral soft tissues. XR/XR femur LT min 2V* [id number] IMPRESSION: No acute bony injury.
[2024-09-04 18:54] LABS: Basophils # 0.1 10^3/uL (0.0-0.1); Basophils % 0.6 %; Eosinophils # 0.2 10^3/uL (0.0-0.8); Eosinophils % 1.3 %; Hematocrit 39.4 % (36-47); Lymphocytes # 1.2 10^3/uL (0.8-4.8); Lymphocytes % 9.1 %; Mean Corpuscular HGB Conc 32.7 g/dL (30-55); Mean Corpuscular Hemoglobin 30.6 pg (27-33); Mean Corpuscular Volume 93.4 fl (85-98); Mean Platelet Volume 10.8 fL (7.4-10.4); Monocytes # 0.6 10^3/uL (0.2-0.9); Monocytes % 4.9 %; Neutrophils % 83.7 %; Nucleated Red Blood Cells % 0 %; Platelet Count 191 10^3/cmm (157-399); Red Blood Count 4.22 10^6/uL (3.85-5.65); Red Cell Distribution Width 12.3 % (12.1-15.1); White Blood Count 12.68 10^3/uL (3.29-11.43)
[2024-09-04 19:27] VITALS: BP 137/79; PULSE 74; RESP 16; O2SAT 97
--- NOTE | 2024-09-04 19:40 | ED_ITS ---
HPI - Extremity Problem 2 General: Chief complaint: Extremity Injury, Lower Stated complaint: kicked in Lt leg by horse Time Seen by Provider: 09/04/24 18:51 Source: patient Mode of arrival: ambulatory Limitations: no limitations History of Present Illness: Patient is a 74-year-old female who presents to the emergency department with left leg injury that occurred a few hours prior to arrival. Reportedly she was kicked in the anterolateral left thigh, causing a large amount of swelling and bruising that has caused patient's severe pain. She has remained ambulatory with no distal neurovascular symptoms reported. She is not on any blood thinners, did take some [id number]-ley-[id number] pain medication that did not do much for her pain. She states she is also felt nauseous from the pain. No other injuries, no other symptoms reported this time. MD Complaint: extremity pain and extremity swelling Onset (ago): hour(s) Pain Consistency: constant Location: left and lower extremity Radiation: none Associated symptoms: Deny chest pain, fever(s) or rash Related Data Home Medications Medication Instructions Recorded Confirmed estradiol 2 mg (7.5 mcg/24 hour) 1 vag ring vaginal .Q90D 02/02/20 06/24/24 vaginal ring (Estring) aspirin 81 mg capsule 81 mg PO DAILY 10/24/21 06/24/24 loratadine 10 mg tablet (Allergy 10 mg PO DAILY 10/24/21 06/24/24 Relief (loratadine)) cholecalciferol (vitamin D3) 50 50 mcg PO DAILY 06/21/24 06/24/24 mcg (2,000 unit) tablet (Vitamin D3) cranberry 500 mg capsule 500 mg PO BID 06/21/24 06/24/24 dorzolamide 2 % eye drops 1 drp ophthalmic (eye) BID 06/21/24 06/24/24 glucosamine sulf dipot 1 cap PO BEDTIME 06/21/24 06/24/24 chlr,msm,chond 550 mg-C 30 mg-pablo 1 mg capsule (Glucosamine Chondroitin) latanoprost 0.005 % eye drops 1 drp ophthalmic (eye) QPM 06/21/24 06/24/24 multivitamin 1 tab PO QPM 06/21/24 06/24/24 omega 1-swz-gyk-fish oil 1,000 mg 1 cap PO QPM 06/21/24 06/24/24 (120 mg-180 mg) capsule (Fish Oil) ondansetron HCl 4 mg tablet 4 mg PO Q8H PRN Nausea 06/21/24 06/24/24 sertraline 50 mg tablet 50 mg PO BEDTIME 06/21/24 06/24/24 simvastatin 20 mg tablet 20 mg PO QPM 06/21/24 06/24/24 timolol maleate 0.5 % eye drops 1 drp ophthalmic (eye) BID 06/21/24 06/24/24 Previous Rx's Medication Instructions Recorded lorazepam 2 mg tablet (Ativan) 1 - 2 mg (0.5 - 1 x 2 mg) PO Q8H 06/21/24 PRN anxiety #14 tabs alprazolam 0.5 mg tablet 0.5 mg PO TID PRN Anxiety #10 tabs 06/25/24 lisinopril 10 mg tablet 10 mg PO BID #60 tabs 06/25/24 metoprolol tartrate 25 mg tablet 25 mg PO BID@0900,2100 #60 tabs 06/25/24 sertraline 25 mg tablet (Zoloft) 25 mg PO DAILY #14 tabs 06/25/24 Allergies Allergy/AdvReac Type Severity Reaction Status Date / Time No Known Drug Allergies Allergy Unknown Verified 06/18/24 16:21 Review of Systems 2 General: Reports: 10 or more systems reviewed and unremarkable except in HPI and below Const: Denies: fever(s) or chills Card: Denies: chest pain Resp: Denies: dyspnea or productive cough GI: Reports: nausea; Denies: abdominal pain, vomiting or diarrhea : Denies: flank pain Musc: Reports: extremity pain and extremity swelling; Denies: neck pain, back pain, joint pain, joint swelling, joint redness, joint warmth, limited range of motion or muscle weakness Skin/Breast: Denies: rash Neuro: Denies: headache(s), numbness in extremities or weakness in extremities PFSH ED 2 PFSH: Medical History Acute hyponatremia Acute anxiety HTN (hypertension) Anxiety Social History Smoking and tobacco/nicotine status: never used tobacco/nicotine Alcohol intake: never Substance/Drug Use: never Physical Exam 2 Const: COMMON NORMALS: no acute distress, patient oriented x3, no limitations, healthy appearing, alert and well nourished HENMT: COMMON NORMALS: normocephalic and atraumatic HEAD & SCALP: n ormocephalic and atraumatic Neck/C-Spine: COMMON NORMALS: full ROM, supple and no meningeal signs Resp: COMMON NORMALS: normal respiratory effort, No use of accessory muscles and clear to auscultation bilaterally AUSCULTATION: clear to auscultation bilaterally Cardio: COMMON NORMALS: regular rate and regular rhythm RATE: regular rate RHYTHM: regular rhythm Extremity: COMMON NORMALS: full ROM, capillary refill normal, no joint enlargement and no clubbing, cyanosis or edema NARRATIVE EXTREMITY EXAM: There is a large hematoma to the anterolateral left thigh with ecchymosis present. Distal neurovascular exam is intact. Full range of motion at the left hip and left knee. Neuro: COMMON NORMALS: patient oriented x3, moves all extremities, no focal motor deficits and no sensory deficits noted SENSORIUM/ORIENTATION: Yes alert MENINGEAL SIGNS: Yes no meningeal signs Skin: COMMON NORMALS: no rashes or lesions noted GENERAL SKIN EXAM: no rashes or lesions noted Course 2 Vital Signs: Vital signs: Vital Signs Temperature 97.6 F 09/04/24 18:07 Pulse Rate 70 09/04/24 20:56 Respiratory Rate 16 09/04/24 20:56 Blood Pressure 161/87 09/04/24 20:56 Pulse Oximetry 98 09/04/24 20:56 Oxygen Delivery Me thod Room Air 09/04/24 20:56 MDM - Extremity (Nontraumatic) Medical Decision Making Patient was kicked by horse to her left anterolateral thigh. Was given p.o. hydromorphone here, x-ray was obtained that did not demonstrate any fracture but did show quite a bit of hematoma formation. On exam she had no neurovascular deficits, and has been ambulatory since this incident did occur. Her CBC was unremarkable, and will treat conservatively with RICE therapy. Return precautions given and she will closely follow-up with primary care. Lab Data 09/04/24 18:47 Radiology Impressions Femur X-Ray 09/04/24 18:35 IMPRESSION: No acute bony injury. Laboratory Results WBC 12.68 10^3/uL (3.29-11.43) H 09/04/24 18:47 RBC 4.22 10^6/uL (3.85-5.65) 09/04/24 18:47 Hgb 12.90 g/dL (11.27-16.99) 09/04/24 18:47 Hct 39.4 % (36-47) 09/04/24 18:47 MCV 93.4 fl (85-98) 09/04/24 18:47 MCH 30.6 pg (27-33) 09/04/24 18:47 MCHC 32.7 g/dL (30-55) 09/04/24 18:47 RDW 12.3 % (12.1-15.1) 09/04/24 18:47 Plt Count 191 10^3/cmm (157-399) 09/04/24 18:47 MPV 10.8 fL (7.4-10.4) H 09/04/24 18:47 Neut % (Auto) 83.7 % 09/04/24 18:47 Lymph % (Auto) 9.1 % 09/04/24 18:47 Thomas % (Auto) 4.9 % 09/04/24 18:47 Eos % (Auto) 1.3 % 09/04/24 18:47 Baso % (Auto) 0.6 % 09/04/24 18:47 Neut # (Auto) 10.60 10^3/uL (1.8-7.7) H 09/04/24 18:47 Lymph # (Auto) 1.2 10^3/uL (0.8-4.8) 09/04/24 18:47 Thomas # (Auto) 0.6 10^3/uL (0.2-0.9) 09/04/24 18:47 Eos # (Auto) 0.2 10^3/uL (0.0-0.8) 09/04/24 18:47 Baso # (Auto) 0.1 10^3/uL (0.0-0.1) 09/04/24 18:47 Nucleated RBC % (auto) 0 % 09/04/24 18:47 Nucleated RBCs # 0.0 /100WBC 09/04/24 18:47 All radiology interpretation(s) finalized by discharge Discharge Plan Discharge Patient Disposition: Home Clinical Impression: Hematoma of left thigh Qualifiers: Encounter type: initial encounter Qualified Code(s): S70.12XA - Contusion of left thigh, initial encounter Condition: Stable Prescriptions: No Action loratadine [Allergy Relief (loratadine)] 10 mg tablet 10 mg PO DAILY aspirin 81 mg capsule 81 mg PO DAILY Estring 2 mg (7.5 mcg /24 hour) ring 1 vag ring VAGINAL .Q90D multivitamin Tablet 1 tab PO QPM latanoprost 0.005 % drops 1 drp ophthalmic (eye) QPM simvastatin 20 mg tablet 20 mg PO QPM timolol maleate 0.5 % drops 1 drp ophthalmic (eye) BID sertraline 50 mg Tablet 50 mg PO BEDTIME cranberry 500 mg Capsule 500 mg PO BID Rx Instructions: administer with meals dorzolamide 2 % drops 1 drp ophthalmic (eye) BID cholecalciferol (vitamin D3) [Vitamin D3] 50 mcg (2,000 unit) Tablet 50 mcg PO DAILY omega 3-rdy-akn-fish oil [Fish Oil] 1,000 mg (120 mg-180 mg) Capsule 1 cap PO QPM Glucosamine Chondroitin 550-30-1 mg Capsule 1 cap PO BEDTIME ondansetron HCl 4 mg tablet 4 mg PO Q8H PRN (Reason: Nausea) lorazepam [Ativan] 2 mg tablet 1 - 2 mg PO Q8H PRN (Reason: anxiety) Qty: 14 0RF alprazolam 0.5 mg Tablet 0.5 mg PO TID PRN (Reason: Anxiety) Qty: 10 0RF lisinopril 10 mg Tablet 10 mg PO BID Qty: 60 4RF metoprolol tartrate 25 mg Tablet 25 mg PO BID@0900,2100 Qty: 60 3RF Zoloft 25 mg tablet 25 mg PO DAILY Qty: 14 0RF Discharge Orders: Discharge ED (Routine); Ordered 09/04/24 Ordered By: Tho Reed Referrals: Amira David FNP [Primary Care Provider] - Patient Instructions: Hematoma (ED) Activity Restrictions/Additional Instructions: Rest, ice, compression, and elevation. Take Tylenol and ibuprofen for pain relief. Follow-up with your primary care provider and return with any new or worsening. Coding Level of Care Code ED Neuropsychology Medical Consultant for Rakesh Brink
[2024-09-04 19:46] VITALS: RESP 16; O2SAT 98
[2024-09-04 19:48] VITALS: BP 146/77; PULSE 72; RESP 16; O2SAT 99
[2024-09-04 20:56] VITALS: BP 161/87; PULSE 70; RESP 16; O2SAT 98
[2024-09-04 21:57] VITALS: BP 147/83; PULSE 69; RESP 14; O2SAT 96
== END 2024-09-04 21:59 | disposition home or self-care (01) ==
PROVIDERS: Emergency Medicine; Emergency Provider Physician Assistant; PCP Nurse Practitioner Family
DX: S70.12XA Contusion of left thigh, initial encounter (principal); W55.12XA Struck by horse, initial encounter; Z79.82 Long term (current) use of aspirin; I10 Essential (primary) hypertension
CPT/HCPCS: 73552; 85025; 99284

== ENCOUNTER 2025-09-02 14:39 | Outpatient (CLI) | payer MEDICARE, SELFPAY ==
--- NOTE | 2025-09-02 14:50 | XR_ITS ---
WS: [id number] SCREENING DEXA SCAN [email or web address] CLINICAL INFORMATION: SCREENING FOR OSTEOPOROSIS COMPARISON: 2021 FINDINGS: The L1-L4 bone mineral density measures 1.588 g/cm2. This corresponds to a T score score of 3.4 and Z score of 5.2. Left femoral neck bone mineral density measures 1.040 g/cm2. This corresponds to a T score of 0.3 and Z score of 2.1. Right femoral neck bone mineral density measures 1.003 g/cm2. This corresponds to a T score 0.0of and Z score of 1.8. Mean femoral neck bone mineral density measures 1.021 g/cm2. This corresponds to a T score of 0.1 and Z score of 1.9. XR/XR DEXA axial skeleton* [id number] IMPRESSION: Normal bone mineralization. Patient's FRAX calculated 10 year probability for major osteoporotic fracture i s 15.3 % and osteoporotic hip fracture is 6.3 %. Bone density lumbar spine decreased -1.8% Bone density femoral necks decreased -2.6%
== END 2025-09-02 14:40 | disposition home or self-care (01) ==
PROVIDERS: PCP Nurse Practitioner Family; Visit Provider Nurse Practitioner Family
DX: Z13.820 Encounter for screening for osteoporosis (principal); M81.0 Age-related osteoporosis without current pathological fracture
CPT/HCPCS: 77080

== ENCOUNTER → 2025-09-03 13:37 | Outpatient (BNVA) | payer MEDICARE, SELFPAY | PROVIDERS: PCP Nurse Practitioner Family; Visit Provider Orthopaedic Surgery | DX: M54.9 Dorsalgia, unspecified (principal) | CPT/HCPCS: 72100; 99203 ==

== ENCOUNTER 2025-09-13 11:29 | Outpatient (CLI) | payer MEDICARE, SELFPAY ==
--- NOTE | 2025-09-13 11:34 | MM_ITS ---
WS: [id number] BILATERAL 3D TOMOSYNTHESIS DIGITAL SCREENING MAMMOGRAM WITH CAD CLINICAL INFORMATION: SCREENING HISTORY: Screening mammogram. No current complaints. COMPARISON: 2023 TECHNIQUE: Bilateral CC and MLO. FINDINGS: The breast are composed of extremely dense tissue, which can limit the detection of small underlying mass lesions. No suspicious focal mass, asymmetry, calcifications, or architectural distortion. No evidence of malignancy. Punctate and lucent centered calcifications. Vascular calcifications. MM/MM [facility] tomosynthesis [id number] IMPRESSION: DENSITY: The breasts are extremely dense, which lowers the sensitivity of mammo graphy. BI-RADS: 2 - Benign FOLLOW UP: 1 Year Follow-up Recommend return to annual screening mammography.
== END 2025-09-13 11:30 | disposition home or self-care (01) ==
LOC: RAD 11:30
PROVIDERS: PCP Nurse Practitioner Family; Visit Provider Nurse Practitioner Family
DX: Z12.31 Encounter for screening mammogram for malignant neoplasm of breast (principal); R92.343 Mammographic extreme density, bilateral breasts; R92.323 Mammographic fibroglandular density, bilateral breasts
CPT/HCPCS: 77063; 77067